=== PATIENT | male | born 1950 | race Caucasian/White ===

== ENCOUNTER 2017-04-12 18:59 | Inpatient (IN) | payer OTHER ==
[~2017-04-12] VITALS: Ht 157.5 cm; Wt 78.5 kg
[2017-04-12 21:50] VITALS: BP 154/83; PULSE 74
[2017-04-12 22:28] VITALS: Ht 157.5 cm; Wt 78.5 kg
[2017-04-12] MEDS ORDERED: ACETAMINOPHEN 325 MG TAB PO PRN (22:30)
[2017-04-12] MEDS ORDERED: DEXTROSE 50% 50 ML SYRINGE IV PRN (22:30)
[2017-04-12] MEDS ORDERED: GLUCOSE GEL 15 GRAM TUBE PO PRN (22:30)
[2017-04-12] MEDS ORDERED: NITROGLYCERIN (SL) 0.4 MG TAB SL PRN (22:30)
[2017-04-12] MEDS ORDERED: INSULIN GLARGINE [LANtus] 3 ML PEN SC SCH (23:30)
[2017-04-13] MEDS: CEFTRIAXONE 1 GM/50 ML (PMX) 50 ML IVPB SCH
[2017-04-13] MEDS: INSULIN GLARGINE [LANtus] 3 ML PEN SC SCH ×3 (01:21→20:52)
[2017-04-13] MEDS: Insulin NOVOLOG SS MODERATE Algorithm (SS with meals and bedtime) SC SCH ×5 (01:22→20:46)
[2017-04-13 01:49] LABS: ADD UMIC YES; UR ASCORBIC ACID NEGATIVE (NEGATIVE); UR BILIRUBIN (Dip) NEGATIVE (NEGATIVE); UR BLOOD (Dip) 1+ mg/dL (NEGATIVE); UR CLARITY CLEAR (CLEAR); UR COLOR YELLOW (YELLOW); UR GLUCOSE (Dip) 3+ mg/dL (NEGATIVE); UR KETONES (Dip) NEGATIVE (NEGATIVE); UR LEUKOCYTE ESTERASE (Dip) NEGATIVE Leu/ul (NEGATIVE); UR NITRITE (Dip) NEGATIVE (NEGATIVE); UR RBC 1 /HPF (0-5); UR SPECIFIC GRAVITY (Dip) 1.031 (1.003-1.030); UR TOTAL PROTEIN (Dip) NEGATIVE (NEGATIVE); UR UROBILINOGEN (Dip) NEGATIVE (NEGATIVE)
[2017-04-13] MEDS: ACCUCHECK AT 2AM (Patients on SS coverage) XX SCH (02:55)
[2017-04-13] MEDS: PANTOPRAZOLE (EC) 40 MG TAB PO SCH (06:10)
[2017-04-13 07:01] LABS: ADD SCAN DIFF NO
[2017-04-13 07:04] LABS: BASOPHILS % 0.4 % (0.0-2.0); EOSINOPHILS # 0.2 10^3/ul (0.0-0.5); EOSINOPHILS % 2.7 % (0.0-7.0); HEMATOCRIT 42.8 % (42.0-52.0); HEMOGLOBIN 14.3 g/dl (14.0-18.0); LYMPHOCYTES # 1.7 10^3/ul (0.8-2.9); LYMPHOCYTES % 22.6 % (15.0-51.0); MEAN CORPUSCULAR HEMOGLOBIN 30.8 pg (29.0-33.0); MEAN CORPUSCULAR HGB CONC 33.4 g/dl (32.0-37.0); MEAN CORPUSCULAR VOLUME 92.2 fl (82.0-101.0); MEAN PLATELET VOLUME 12.9 fl (7.4-10.4); MONOCYTE # 0.6 10^3/ul (0.3-0.9); MONOCYTES % 8.5 % (0.0-11.0); NEUTROPHIL # 4.9 10^3/ul (1.6-7.5); NEUTROPHILS % 65.4 % (39.0-77.0); PLATELET COUNT 150 10^3/UL (140-415); RED BLOOD COUNT 4.64 10^6/ul (4.70-6.10); RED CELL DISTRIBUTION WIDTH 12.8 % (11.5-14.5); WHITE BLOOD COUNT 7.5 10^3/ul (4.8-10.8)
[2017-04-13] MEDS ORDERED: AL HYDROX/MG HYDROX/SIMETH 30 ML CUP PO ONE (07:05)
[2017-04-13 07:30] VITALS: BP 190/88; RESP 18
[2017-04-13 07:35] LABS: ALBUMIN 3.9 g/dl (3.3-4.9); ALBUMIN/GLOBULIN RATIO 1.62; BILIRUBIN,INDIRECT 0.9 mg/dl (0-1.1); BILIRUBIN,TOTAL 0.9 mg/dl (0.2-1.3); CALCIUM 8.9 mg/dl (8.4-10.2); CREATININE 0.5 mg/dl (0.61-1.24); TOTAL PROTEIN 6.3 g/dl (6.1-8.1)
[2017-04-13] MEDS ORDERED: BISACODYL 10 MG SUPP PR PRN (08:30)
[2017-04-13] MEDS ORDERED: MAGNESIUM HYDROXIDE 30ML CUP PO PRN (08:30)
[2017-04-13] MEDS ORDERED: LACTULOSE 30ML CUP PO PRN (08:30)
[2017-04-13] MEDS ORDERED: LISINOPRIL 20 MG TAB PO SCH (09:00)
[2017-04-13] MEDS: AL HYDROX/MG HYDROX/SIMETH 30 ML CUP PO SCH ×4 (09:08→20:46)
[2017-04-13] MEDS: AMLODIPINE 10 MG TAB PO SCH (09:09)
[2017-04-13] MEDS: ASPIRIN (EC) 325 MG TAB PO SCH (09:09)
[2017-04-13] MEDS: DOCUSATE SODIUM 100 MG CAP PO SCH ×2 (09:09→20:46)
[2017-04-13] MEDS: ENOXAPARIN 40 MG/0.4 ML SYG SC SCH (09:11)
[2017-04-13] MEDS: INSULIN ASPART [NOVOLOG] 3 ML PEN SC SCH ×3 (09:12→17:20)
--- NOTE | 2017-04-13 10:28 | CONS ---
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 uncontrolled diabetes mellitus type 2 2. hypertension 3. hyperlipidemia 4. history of CVA with good functional recovery 5. Impairments in self-care, mobility and cognition. PLAN: The patient has been admitted for comprehensive interdisciplinary acute rehab and is anticipated to tolerate 3 hours of daily therapy in divided doses for at least 5/7 days a week. The treatment plan will include: 1. Physical therapy to focus on bed mobility, transfers, and household ambulation with the goal of having the patient reach a standby assist at the wheelchair level, minimal assist for ambulation. 2. Occupational therapy to focus on hygiene, grooming, dressing, bathing, and toileting activities with the goal of having the patient reach a standby assist level at the wheelchair level. 3. Speech therapy for full cognitive assessment and retraining in addition to dysphagia management with the goal of having the patient return to baseline cognition and meet nutritional needs by mouth. 4. Rehabilitation nursing for carryover of therapeutic interventions, the goal of continent of bowel and bladder, the goal of pain adequately managed on oral medications. ESTIMATED LENGTH OF STAY: 14 days. DISPOSITION GOAL: Home. Rehabilitation Barrier: Left-sided weakness Intervention for barrier: Interdisciplinary rehabilitative treatment program I acknowledge that I performed a full physical examination on this patient within 24 hours of admission to the rehabilitation unit and believe the patient is a good candidate for comprehensive interdisciplinary rehab care and is anticipated to make reasonable goals in a reasonable period of time as outlined above. Consultation Date/Type/Reason Admit Date/Time Apr 12, 2017 at 21:24 Type of Consultation: Rehabilitation Reason for Consultation Rehabilitation post admission physician evaluation Hx of Present Illness Patient is a pleasant 66-year-old right-handed gentleman with a history of diabetes mellitus type 2, hypertension, and hyperlipidemia who presented to [facility] with 2 days of left-sided weakness. Patient reports a ground-level fall due to his weakness. Patient was noted to have right basal ganglia infarct. Patient's hospital course was also notable for uncontrolled diabetes with blood sugar greater than 500. Patient has been cleared to transfer to the rehabilitation unit for comprehensive interdisciplinary rehab care. Constitutional: No chills, No diaphoresis, No disoriented, No febrile, No improved, No no complaints, No other, No poor po, No requiring IVF, No requiring O2 Eyes: No discharge, No no complaints, No other, No pain, No redness, No visual change ENT: No bleeding, No congestion, No discharge, No dysphagia, No no complaints, No other, No pain, No sore throat Respiratory: No cough, No no complaints, No other, No pain, No pleuritic pain, No shortness of breath, No sputum, No wheezing Cardiovascular: No chest pain, No edema, No lightheadedness, No no complaints, No orthopenea, No other, No palpitations, No paroxysmal nocturnal dyspnea Gastrointestinal: No blood, No constipation, No decreased appetite, No diarrhea , No flatus, No nausea, No no complaints, No other, No pain, No passing stool, No vomiting Genitourinary: No bleeding, No discharge, No dysuria, No flank pain, No hematuria, No no complaints, No other Past Medical History FUNCTIONAL HISTORY: Prior to recent events, he was independent in self-care tasks and mobility. Currently, patient requires maximal assist for self-care and mobility tasks. I have reviewed the preadmission screen and the patient's current functional status is consistent with the preadmission screen. SOCIAL HISTORY: The patient lives at home and hopes to return there upon discharge. Past medical history 1. diabetes mellitus type 2 2. Hypertension 3. Hyperlipidemia 4. History of CVA with good functional recovery 5. Alcoholism Social History Smoking Status: Never smoker Exam/Review of Systems Vital Signs Vitals Vital Signs Date Time Temp Pulse Resp B/P Pulse Ox O2 Delivery O2 Flow Rate FiO2 04/12/17 21:50 98.7 74 154/83 Room Air Intake and Output 04/12/17 04/12/17 04/13/17 15:00 23:00 07:00 Intake Total 290 ml Output Total 250 ml Balance 40 ml Exam Extraocular motion intact oropharynx clear Neck supple Lungs clear anteriorly Cardiac S1-S2 Abdomen soft nontender positive bowel sounds Patient is awake and alert and oriented to person and hospital He does follow simple one-step commands He demonstrate good strength in the right upper and lower extremity; 2+ strength in the left upper and lower extremity He has impaired dynamic balance Results Result Diagram: 04/13/1727 04/13/17626 Results 24 hrs Laboratory Tests Test 04/12/17 22:32 04/13/17 00:28 04/13/17 01:01 04/13/17 02:51 Bedside Glucose 293 H 348 H 192 Urine Color YELLOW Urine Clarity CLEAR Urine pH 6.0 Urine Specific [place] 1.031 H Urine Ketones NEGATIVE Urine Nitrite NEGATIVE Urine Bilirubin NEGATIVE Urine Urobilinogen NEGATIVE Urine Leukocyte Esterase NEGATIVE Urine Microscopic RBC 1 Urine Microscopic WBC 0 Urine Hemoglobin 1+ H Urine Glucose 3+ H Urine Total Protein NEGATIVE Test 04/13/17 06:27 04/13/17 08:09 White Blood Count 7.5 Red Blood Count 4.64 L Hemoglobin 14.3 Hematocrit 42.8 Mean Corpuscular Volume 92.2 Mean Corpuscular Hemoglobin 30.8 Mean Corpuscular Hemoglobin Concent 33.4 Red Cell Distribution Width 12.8 Platelet Count 150 Mean Platelet Volume 12.9 H Neutrophils % 65.4 Lymphocytes % 22.6 Monocytes % 8.5 Eosinophils % 2.7 Basophils % 0.4 Nucleated Red Blood Cells % 0.0 Neutrophils # 4.9 Lymphocytes # 1.7 Monocytes # 0.6 Eosinophils # 0.2 Basophils # 0.0 Nucleated Red Blood Cells # 0.0 Sodium Level 132 L Potassium Level 3.0 L Chloride Level 100 Carbon Dioxide Level 28 Anion Gap 7 L Blood Urea Nitrogen 12 Creatinine 0.50 L Glucose Level 168 Calcium Level 8.9 Total Bilirubin 0.9 Direct Bilirubin 0.00 Indirect Bilirubin 0.9 Aspartate Amino Transf (AST/SGOT) 59 H Alanine Aminotransferase (ALT/SGPT) 83 H Alkaline Phosphatase 70 Total Protein 6.3 Albumin 3.9 Globulin 2.40 Albumin/Globulin Ratio 1.62 Bedside Glucose 168 Medications Medications Current Medications Acetaminophen 650 mg 650 mg Q4H PRN PO PAIN AND OR ELEVATED TEMP; Start at 22:30 Ceftriaxone Sodium (Rocephin) 50 ml @ 100 mls/hr Q24H IVPB Last administered on 04/13/17t 00:00; Admin Dose 100 MLS/HR; Start 04/13/17 at 00:00 Glucose (Glutose) 31 gm PRN PRN PO DECREASED GLUCOSE; Start 04/12/17 at 22:30 Dextrose (D50w Syringe) 50 ml PRN PRN IV DECREASED GLUCOSE; Start 04/12/17 at 22:30 Nitroglycerin (Nitroglycerin (Sl Tab) 0.4 Mg) 1 tab Q5M PRN SL ANGINA; Start at 22:30 Pantoprazole (Protonix Tab) 40 mg DAILY@06 PO Last administered on 04/13/17 06 :10; Admin Dose 40 MG; Start 04/13/17 at 06:00 Amlodipine Besylate (Norvasc) 10 mg DAILY PO Last administered on 04/13/17 09: 09; Admin Dose 10 MG; Start 04/13/17 at 09:00 Aspirin (Ecotrin) 325 mg DAILY PO Last administered on 04/13/17 09:09; Admin Dose 325 MG; Start 04/13/17 at 09:00 Atorvastatin Calcium (Lipitor) 80 mg HS PO ; Start 04/13/17 at 21:00 Enoxaparin Sodium (Lovenox) 40 mg DAILY SC Last administered on 04/13/17 09:11 ; Admin Dose 40 MG; Start 04/13/17 at 09:00 Lisinopril (Zestril) 40 mg DAILY PO Last administered on 04/13/17 09:13; Admin Dose 40 MG; Start 04/13/17 at 09:00 Insulin Glargine (Lantus) 25 unit BID SC Last administered on 04/13/17 09:10; Admin Dose 25 UNIT; Start 04/13/17 at 00:00 Diagnostic Test (Pha) (Accu-Chek) 1 ea 02 XX Last administered on 04/13/17 02: 55; Admin Dose 1 EA; Start 04/13/17 at 02:00 Docusate Sodium (Colace) 100 mg BID PO Last administered on 04/13/17 09:09; Admin Dose 100 MG; Start 04/13/17 at 09:00 Senna (Senokot) 1 tab HS PO ; Start 04/13/17 at 21:00 Bisacodyl (Dulcolax Supp) 10 mg Q24H PRN [place] CONSTIPATION; Start 04/13/17 at 08: 30 Magnesium Hydroxide (Milk Of Mag) 30 ml Q12H PRN PO CONSTIPATION; Start at 08:30 Lactulose (Enulose) 20 gm Q24H PRN PO CONSTIPATION Last administered on 09:08; Admin Dose 20 GM; Start 04/13/17 at 08:30 EVANGELINA RAMIREZ MD Apr 13, 2017 10:28
[2017-04-13] MEDS ORDERED: POTASSIUM CHLORIDE (SR) 20 MEQ TAB PO STA (16:12)
[2017-04-13] MEDS ORDERED: DEXTROSE 50% 50 ML SYRINGE IV PRN ×2 (18:00)
[2017-04-13] MEDS ORDERED: GLUCOSE GEL 15 GRAM TUBE PO PRN ×2 (18:00)
[2017-04-13] MEDS ORDERED: GLUCAGON 1 MG INJ IM PRN (18:00)
[2017-04-13] MEDS ORDERED: GLUCOSE GEL 15 GRAM TUBE BUCCAL PRN (18:00)
[2017-04-13 19:42] VITALS: BP 170/80; RESP 18
[2017-04-13] MEDS: SENNA TAB PO SCH (20:46)
[2017-04-13] MEDS: ATORVASTATIN 80 MG TAB PO SCH (20:46)
[2017-04-14] MEDS: CEFTRIAXONE 1 GM/50 ML (PMX) 50 ML IVPB SCH
[2017-04-14] MEDS: ACCUCHECK AT 2AM (Patients on SS coverage) XX SCH (02:00)
[2017-04-14 06:36] LABS: ADD SCAN DIFF NO
[2017-04-14] MEDS: PANTOPRAZOLE (EC) 40 MG TAB PO SCH (06:38)
[2017-04-14 06:54] LABS: BASOPHILS % 0.5 % (0.0-2.0); EOSINOPHILS # 0.2 10^3/ul (0.0-0.5); EOSINOPHILS % 2.7 % (0.0-7.0); HEMATOCRIT 43.2 % (42.0-52.0); HEMOGLOBIN 14.3 g/dl (14.0-18.0); LYMPHOCYTES # 1.9 10^3/ul (0.8-2.9); LYMPHOCYTES % 21.7 % (15.0-51.0); MEAN CORPUSCULAR HGB CONC 33.1 g/dl (32.0-37.0); MEAN CORPUSCULAR VOLUME 93.7 fl (82.0-101.0); MEAN PLATELET VOLUME 12.8 fl (7.4-10.4); MONOCYTE # 0.7 10^3/ul (0.3-0.9); MONOCYTES % 8.2 % (0.0-11.0); NEUTROPHIL # 5.8 10^3/ul (1.6-7.5); NEUTROPHILS % 66.7 % (39.0-77.0); PLATELET COUNT 157 10^3/UL (140-415); RED BLOOD COUNT 4.61 10^6/ul (4.70-6.10); RED CELL DISTRIBUTION WIDTH 12.8 % (11.5-14.5); WHITE BLOOD COUNT 8.7 10^3/ul (4.8-10.8)
[2017-04-14 07:12] LABS: ALBUMIN 3.9 g/dl (3.3-4.9); ALBUMIN/GLOBULIN RATIO 1.56; CALCIUM 9.1 mg/dl (8.4-10.2); CREATININE 0.63 mg/dl (0.61-1.24); POTASSIUM 3.6 mmol/L (3.5-5.1); TOTAL PROTEIN 6.4 g/dl (6.1-8.1)
[2017-04-14 07:51] VITALS: BP 145/81; RESP 17
[2017-04-14] MEDS: AL HYDROX/MG HYDROX/SIMETH 30 ML CUP PO SCH ×4 (07:51→20:57)
[2017-04-14] MEDS: INSULIN ASPART [NOVOLOG] 3 ML PEN SC SCH ×3 (07:53→17:04)
[2017-04-14] MEDS: Insulin NOVOLOG SS MODERATE Algorithm (SS with meals and bedtime) SC SCH ×4 (07:54→20:59)
[2017-04-14] MEDS ORDERED: LOSARTAN 25 MG TAB PO SCH (09:00)
[2017-04-14] MEDS: ASPIRIN (EC) 325 MG TAB PO SCH (09:09)
[2017-04-14] MEDS: DOCUSATE SODIUM 100 MG CAP PO SCH ×2 (09:09→20:57)
[2017-04-14] MEDS: AMLODIPINE 10 MG TAB PO SCH (09:09)
[2017-04-14] MEDS: ENOXAPARIN 40 MG/0.4 ML SYG SC SCH (09:09)
[2017-04-14] MEDS: INSULIN GLARGINE [LANtus] 3 ML PEN SC SCH ×2 (09:10→21:19)
--- NOTE | 2017-04-14 11:53 | HP ---
Date/Time of Note Date/Time of Note DATE: 04/14/17 TIME: 11:49 Assessment/Plan VTE Prophylaxis VTE Prophylaxis Intervention: SCD's Lines/Catheters [facility] Saline Lock Assessment/Plan Chief Complaint/Hosp Course 1. uncontrolled diabetes mellitus type 2 2. hypertension, uncontrolled 3. hyperlipidemia 4. history of CVA with left sided hemiparesis 5.Obesity Problems: Assessment/Plan 1. Optimization kidney function 2. better HTN control HPI/ROS Admit Date/Time Admit Date/Time Apr 12, 2017 at 21:24 ROS Constitutional: fatigue Eyes: No discharge, No no complaints, No other, No pain, No redness, No visual change ENT: no complaints, No bleeding, No congestion, No discharge, No dysphagia, No other, No pain, No sore throat Respiratory: No cough, No no complaints, No other, No pain, No pleuritic pain, No shortness of breath, No sputum, No wheezing Cardiovascular: no complaints, No chest pain, No edema, No lightheadedness, No orthopenea, No other, No palpitations, No paroxysmal nocturnal dyspnea Gastrointestinal: no complaints, No blood, No constipation, No decreased appetite, No diarrhea, No flatus, No nausea, No other, No pain, No passing stool, No vomiting Genitourinary: no complaints, No bleeding, No discharge, No dysuria, No flank pain, No hematuria, No other Musculoskeletal: restricted range of motion (left side of the body) Endocrine: polyuria PMH/Family/Social Past Medical History Medical History: diabetes, GERD, high cholesterol, hypertension Past Surgical History Past Surgical Hx: no surgical history Family History Significant Family History: no pertinent family hx Social History Alcohol Use: none Smoking Status: Never smoker Drug Use: none Exam/Review of Systems Vital Signs Vitals Vital Signs Date Time Temp Pulse Resp B/P Pulse Ox O2 Delivery O2 Flow Rate FiO2 04/14/17 07:51 98.1 75 17 145/81 92 04/12/17 21:50 Room Air Intake and Output 04/13/17 04/13/17 04/14/17 15:00 23:00 07:00 Intake Total 680 ml 700 ml Output Total 500 ml 140 ml Balance -500 ml 540 ml 700 ml Exam Constitutional: alert, oriented Psych: no complaints Head: normocephalic Neck: supple Respiratory: clear to auscultation Cardiovascular: regular rate and rhythm Gastrointestinal: soft Genitourinary - Male: nl scrotum Musculoskeletal: muscle weakness (left side) Neurological: focal weakness, nl speech Skin: nl turgor Labs Result Diagram: 04/14/1761704/14/17617 Medications Medications Current Medications Acetaminophen 650 mg 650 mg Q4H PRN PO PAIN AND OR ELEVATED TEMP; Start at 22:30 Ceftriaxone Sodium (Rocephin) 50 ml @ 100 mls/hr Q24H IVPB Last administered on 04/14/17 00:00; Admin Dose 100 MLS/HR; Start 04/13/17 at 00:00; Stop at 00:00 Glucose (Glutose) 31 gm PRN PRN PO DECREASED GLUCOSE; Start 04/12/17 at 22:30 Dextrose (D50w Syringe) 50 ml PRN PRN IV DECREASED GLUCOSE; Start 04/12/17 at 22:30 Nitroglycerin (Nitroglycerin (Sl Tab) 0.4 Mg) 1 tab Q5M PRN SL ANGINA; Start at 22:30 Pantoprazole (Protonix Tab) 40 mg DAILY@06 PO Last administered on 04/14/17 06 :38; Admin Dose 40 MG; Start 04/13/17 at 06:00 Amlodipine Besylate (Norvasc) 10 mg DAILY PO Last administered on 04/14/17 09: 09; Admin Dose 10 MG; Start 04/13/17 at 09:00 Aspirin (Ecotrin) 325 mg DAILY PO Last administered on 04/14/17 09:09; Admin Dose 325 MG; Start 04/13/17 at 09:00 Atorvastatin Calcium (Lipitor) 80 mg HS PO Last administered on 04/13/17 20:46 ; Admin Dose 80 MG; Start 04/13/17 at 21:00 Enoxaparin Sodium (Lovenox) 40 mg DAILY SC Last administered on 04/14/17 09:09 ; Admin Dose 40 MG; Start 04/13/17 at 09:00 Insulin Glargine (Lantus) 25 unit BID SC Last administered on 04/14/17 09:10; Admin Dose 25 UNIT; Start 04/13/17 at 00:00 Diagnostic Test (Pha) (Accu-Chek) 1 XX Last administered on 04/13/17 02: 55; Admin Dose 1 EA; Start 04/13/17 at 02:00 Docusate Sodium (Colace) 100 mg BID PO Last administered on 04/14/17 09:09; Admin Dose 100 MG; Start 04/13/17 at 09:00 Senna (Senokot) 1 tab HS PO Last administered on 04/13/17 20:46; Admin Dose 1 TAB; Start 04/13/17 at 21:00 Bisacodyl (Dulcolax Supp) 10 mg Q24H PRN [place] CONSTIPATION; Start 04/13/17 at 08: 30 Magnesium Hydroxide (Milk Of Mag) 30 ml Q12H PRN PO CONSTIPATION; Start at 08:30 Lactulose (Enulose) 20 gm Q24H PRN PO CONSTIPATION Last administered on 09:08; Admin Dose 20 GM; Start 04/13/17 at 08:30 Losartan Potassium (Cozaar) 25 mg DAILY PO Last administered on 04/14/17 09:09 ; Admin Dose 25 MG; Start 04/14/17 at 09:00 Miscellaneous Information 1 ea NOTE XX ; Start 04/13/17 at 18:00 Glucose (Glutose) 15 gm Q15M PRN PO DECREASED GLUCOSE; Start 04/13/17 at 18:00 Glucose (Glutose) 22.5 gm Q15M PRN PO DECREASED GLUCOSE; Start 04/13/17 at 18: 00 Dextrose (D50w Syringe) 25 ml Q15M PRN IV DECREASED GLUCOSE; Start 04/13/17 at 18:00 Dextrose (D50w Syringe) 50 ml Q15M PRN IV DECREASED GLUCOSE; Start 04/13/17 at 18:00 Glucagon (Glucagen) 1 mg Q15M PRN IM DECREASED GLUCOSE; Start 04/13/17 at 18:00 Glucose (Glutose) 15 gm Q15M PRN BUCCAL DECREASED GLUCOSE; Start 04/13/17 at 18 :00 EMILY BRADFORD Apr 14, 2017 11:52
[2017-04-14] MEDS: LINAGLIPTIN 5 MG TABLET PO SCH (12:23)
--- NOTE | 2017-04-14 13:23 | CONS ---
Date/Time of Note Date/Time of Note DATE: 04/14/17 TIME: 13:20 Consult Date/Type/Reason Admit Date/Time Apr 12, 2017 at 21:24 Initial Consult Date Type of Consultation: Rehabilitation Objective Lungs clear anterior Abdomen soft Moderate assist Vital Signs Date Time Temp Pulse Resp B/P Pulse Ox O2 Delivery O2 Flow Rate FiO2 04/14/17 07:51 98.1 75 17 145/81 92 04/12/17 21:50 Room Air Intake and Output 04/13/17 04/13/17 04/14/17 15:00 23:00 07:00 Intake Total 680 ml 700 ml Output Total 500 ml 140 ml Balance -500 ml 540 ml 700 ml Results/Medications Result Diagram: 04/14/17 0618 04/14/17 0618 Results 24 hrs Laboratory Tests Test 04/13/17 17:16 04/13/17 20:39 04/14/17 06:18 04/14/17 07:37 Bedside Glucose 182 159 175 White Blood Count 8.7 Red Blood Count 4.61 L Hemoglobin 14.3 Hematocrit 43.2 Mean Corpuscular Volume 93.7 Mean Corpuscular Hemoglobin 31.0 Mean Corpuscular Hemoglobin Concent 33.1 Red Cell Distribution Width 12.8 Platelet Count 157 Mean Platelet Volume 12.8 H Neutrophils % 66.7 Lymphocytes % 21.7 Monocytes % 8.2 Eosinophils % 2.7 Basophils % 0.5 Nucleated Red Blood Cells % 0.0 Neutrophils # 5.8 Lymphocytes # 1.9 Monocytes # 0.7 Eosinophils # 0.2 Basophils # 0.0 Nucleated Red Blood Cells # 0.0 Sodium Level 131 L Potassium Level 3.6 Chloride Level 99 Carbon Dioxide Level 28 Anion Gap 8 Blood Urea Nitrogen 16 Creatinine 0.63 Glucose Level 156 Calcium Level 9.1 Total Bilirubin 1.0 Direct Bilirubin 0.00 Indirect Bilirubin 1.0 Aspartate Amino Transf (AST/SGOT) 73 H Alanine Aminotransferase (ALT/SGPT) 97 H Alkaline Phosphatase 69 Total Protein 6.4 Albumin 3.9 Globulin 2.50 Albumin/Globulin Ratio 1.56 Test 04/14/17 12:05 Bedside Glucose 219 Medications Current Medications Acetaminophen 650 mg 650 mg Q4H PRN PO PAIN AND OR ELEVATED TEMP; Start at 22:30 Ceftriaxone Sodium (Rocephin) 50 ml @ 100 mls/hr Q24H IVPB Last administered on 04/14/17 00:00; Admin Dose 100 MLS/HR; Start 04/13/17 at 00:00; Stop at 00:00 Glucose (Glutose) 31 gm PRN PRN PO DECREASED GLUCOSE; Start 04/12/17 at 22:30 Dextrose (D50w Syringe) 50 ml PRN PRN IV DECREASED GLUCOSE; Start 04/12/17 at 22:30 Nitroglycerin (Nitroglycerin (Sl Tab) 0.4 Mg) 1 tab Q5M PRN SL ANGINA; Start at 22:30 Pantoprazole (Protonix Tab) 40 mg DAILY@06 PO Last administered on 04/14/17 06 :38; Admin Dose 40 MG; Start 04/13/17 at 06:00 Amlodipine Besylate (Norvasc) 10 mg DAILY PO Last administered on 04/14/17 09: 09; Admin Dose 10 MG; Start 04/13/17 at 09:00 Aspirin (Ecotrin) 325 mg DAILY PO Last administered on 04/14/17 09:09; Admin Dose 325 MG; Start 04/13/17 at 09:00 Atorvastatin Calcium (Lipitor) 80 mg HS PO Last administered on 04/13/17 20:46 ; Admin Dose 80 MG; Start 04/13/17 at 21:00 Enoxaparin Sodium (Lovenox) 40 mg DAILY SC Last administered on 04/14/17 09:09 ; Admin Dose 40 MG; Start 04/13/17 at 09:00 Diagnostic Test (Pha) (Accu-Chek) 1 ea 02 XX Last administered on 04/13/17 02: 55; Admin Dose 1 EA; Start 04/13/17 at 02:00 Docusate Sodium (Colace) 100 mg BID PO Last administered on 04/14/17 09:09; Admin Dose 100 MG; Start 04/13/17 at 09:00 Senna (Senokot) 1 tab HS PO Last administered on 04/13/17 20:46; Admin Dose 1 TAB; Start 04/13/17 at 21:00 Bisacodyl (Dulcolax Supp) 10 mg Q24H PRN [place] CONSTIPATION; Start 04/13/17 at 08: 30 Magnesium Hydroxide (Milk Of Mag) 30 ml Q12H PRN PO CONSTIPATION; Start at 08:30 Lactulose (Enulose) 20 gm Q24H PRN PO CONSTIPATION Last administered on 09:08; Admin Dose 20 GM; Start 04/13/17 at 08:30 Miscellaneous Information 1 ea NOTE XX ; Start 04/13/17 at 18:00 Glucose (Glutose) 15 gm Q15M PRN PO DECREASED GLUCOSE; Start 04/13/17 at 18:00 Glucose (Glutose) 22.5 gm Q15M PRN PO DECREASED GLUCOSE; Start 04/13/17 at 18: 00 Dextrose (D50w Syringe) 25 ml Q15M PRN IV DECREASED GLUCOSE; Start 04/13/17 at 18:00 Dextrose (D50w Syringe) 50 ml Q15M PRN IV DECREASED GLUCOSE; Start 04/13/17 at 18:00 Glucagon (Glucagen) 1 mg Q15M PRN IM DECREASED GLUCOSE; Start 04/13/17 at 18:00 Glucose (Glutose) 15 gm Q15M PRN BUCCAL DECREASED GLUCOSE; Start 04/13/17 at 18 :00 Insulin Glargine (Lantus) 30 unit QHS SC ; Start 04/14/17 at 21:00 Losartan Potassium (Cozaar) 25 mg BID PO ; Start 04/14/17 at 21:00 Linagliptin (Tradjenta) 5 mg DAILY PO Last administered on 04/14/17 12:23; Admin Dose 5 MG; Start 04/14/17 at 12:00 Assessment/Plan Chief Complaint/Hosp Course Patient is a pleasant 66-year-old right-handed gentleman with a history of diabetes mellitus type 2, hypertension, and hyperlipidemia who presented to [facility] with 2 days of left-sided weakness. Patient reports a ground-level fall due to his weakness. Patient was noted to have right basal ganglia infarct. Patient's hospital course was also notable for uncontrolled diabetes with blood sugar greater than 500. Patient has been cleared to transfer to the rehabilitation unit for comprehensive interdisciplinary rehab care. Problems: Additional Assessment/Plan Rehabilitation- right basal ganglia infarct CVA with left-sided weakness Tolerating rehabilitation program uncontrolled diabetes mellitus type 2-patient with newly diagnosed diabetes. hematology nurse educator working with patient and staff. hypertension hyperlipidemia history of CVA with good functional recovery EVANGELINA RAMIREZ MD Apr 14, 2017 13:23
[2017-04-14 20:14] VITALS: BP 131/65; RESP 18
[2017-04-14] MEDS: ATORVASTATIN 80 MG TAB PO SCH (20:57)
[2017-04-14] MEDS: SENNA TAB PO SCH (20:57)
[2017-04-14] MEDS: LOSARTAN 25 MG TAB PO SCH (20:59)
[2017-04-15] MEDS: CEFTRIAXONE 1 GM/50 ML (PMX) 50 ML IVPB SCH (00:04)
[2017-04-15] MEDS: ACCUCHECK AT 2AM (Patients on SS coverage) XX SCH (02:00)
[2017-04-15] MEDS: PANTOPRAZOLE (EC) 40 MG TAB PO SCH (06:53)
[2017-04-15 07:30] VITALS: BP 133/70; RESP 18
[2017-04-15 07:32] LABS: CALCIUM 9.2 mg/dl (8.4-10.2); CREATININE 0.58 mg/dl (0.61-1.24); POTASSIUM 3.6 mmol/L (3.5-5.1)
[2017-04-15] MEDS: Insulin NOVOLOG SS MODERATE Algorithm (SS with meals and bedtime) SC SCH ×4 (07:35→21:00)
[2017-04-15] MEDS: AL HYDROX/MG HYDROX/SIMETH 30 ML CUP PO SCH ×4 (07:50→21:35)
[2017-04-15] MEDS: INSULIN ASPART [NOVOLOG] 3 ML PEN SC SCH ×3 (07:50→17:29)
[2017-04-15] MEDS: DOCUSATE SODIUM 100 MG CAP PO SCH ×2 (08:35→21:35)
[2017-04-15] MEDS: AMLODIPINE 10 MG TAB PO SCH (08:36)
[2017-04-15] MEDS: ASPIRIN (EC) 325 MG TAB PO SCH (08:36)
[2017-04-15] MEDS: LOSARTAN 25 MG TAB PO SCH (08:36)
[2017-04-15] MEDS: LINAGLIPTIN 5 MG TABLET PO SCH (08:36)
[2017-04-15] MEDS: ENOXAPARIN 40 MG/0.4 ML SYG SC SCH (08:37)
--- NOTE | 2017-04-15 11:58 | PN ---
Date/Time of Note Date/Time of Note DATE: 04/15/17 TIME: 11:53 Assessment/Plan VTE Prophylaxis VTE Prophylaxis Intervention: LMWH Lines/Catheters IV Catheter Type (from Nrs): Saline Lock Assessment/Plan Assessment/Plan 1. 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 Continue PT/OT/ST. Moderate assistance for transfers. Secondary stroke prevention per neurology. 2. Diabetes mellitus type 2. Internal medicine adjusting insulin regimen. Monitor blood sugars. 3. Hypertension. BP control improving. Continue medical management per internal medicine. 4.Hyperlipidemia. Continue statin. Subjective 24 Hr Interval Summary Free Text/Dictation Rehab progress note Subjective: No acute complaints. ROS: Denies chest pain, no shortness of breath, no abdominal pain, no nausea or vomiting, no chills. Exam/Review of Systems Vital Signs Vitals Vital Signs Date Time Temp Pulse Resp B/P Pulse Ox O2 Delivery O2 Flow Rate FiO2 04/15/17 07:30 98.4 69 18 133/70 94 04/12/17 21:50 Room Air Intake and Output 04/14/17 04/14/17 04/15/17 15:00 23:00 07:00 Intake Total 820 ml 720 ml 450 ml Output Total 140 ml 200 ml 400 ml Balance 680 ml 520 ml 50 ml Exam General: Awake, alert, no acute distress CV: Regular rate, s1s2 Lungs: Clear to anterior auscultation, no wheezing Abdomen soft, nontender Extremities without cyanosis, no distal edema Neuro: Follows simple commands. Left sided hemiparesis. Results Result Diagram: 04/14/17 0618 04/15/17 0630 Results 24 hrs Laboratory Tests Test 04/14/17 12:05 04/14/17 17:03 04/14/17 20:56 04/15/17 06:30 Bedside Glucose 219 144 97 Sodium Level 141 Potassium Level 3.6 Chloride Level 99 Carbon Dioxide Level 28 Anion Gap 18 H Blood Urea Nitrogen 15 Creatinine 0.58 L Glucose Level 133 Calcium Level 9.2 Test 04/15/17 07:47 Bedside Glucose 110 Medications Medications Current Medications Acetaminophen (Tylenol Tab) 650 mg Q4H PRN PO PAIN AND OR ELEVATED TEMP; Start 04/12/17 at 22:30 Glucose (Glutose) 31 gm PRN PRN PO DECREASED GLUCOSE; Start 04/12/17 at 22:30 Dextrose (D50w Syringe) 50 ml PRN PRN IV DECREASED GLUCOSE; Start 04/12/17 at 22:30 Nitroglycerin (Nitroglycerin (Sl Tab) 0.4 Mg) 1 tab Q5M PRN SL ANGINA; Start at 22:30 Pantoprazole (Protonix Tab) 40 mg DAILY@06 PO Last administered on 04/15/17 06 :53; Admin Dose 40 MG; Start 04/13/17 at 06:00 Amlodipine Besylate (Norvasc) 10 mg DAILY PO Last administered on 04/15/17 08: 36; Admin Dose 10 MG; Start 04/13/17 at 09:00 Aspirin (Ecotrin) 325 mg DAILY PO Last administered on 04/15/17 08:36; Admin Dose 325 MG; Start 04/13/17 at 09:00 Atorvastatin Calcium (Lipitor) 80 mg HS PO Last administered on 04/14/17 20:57 ; Admin Dose 80 MG; Start 04/13/17 at 21:00 Enoxaparin Sodium (Lovenox) 40 mg DAILY SC Last administered on 04/15/17 08:37 ; Admin Dose 40 MG; Start 04/13/17 at 09:00 Diagnostic Test (Pha) (Accu-Chek) 1 ea 02 XX Last administered on 04/13/17 02: 55; Admin Dose 1 EA; Start 04/13/17 at 02:00 Docusate Sodium (Colace) 100 mg BID PO Last administered on 04/15/17 08:35; Admin Dose 100 MG; Start 04/13/17 at 09:00 Senna (Senokot) 1 tab HS PO Last administered on 04/14/17 20:57; Admin Dose 1 TAB; Start 04/13/17 at 21:00 Bisacodyl (Dulcolax Supp) 10 mg Q24H PRN [place] CONSTIPATION; Start 04/13/17 at 08: 30 Magnesium Hydroxide (Milk Of Mag) 30 ml Q12H PRN PO CONSTIPATION; Start at 08:30 Lactulose (Enulose) 20 gm Q24H PRN PO CONSTIPATION Last administered on 09:08; Admin Dose 20 GM; Start 04/13/17 at 08:30 Miscellaneous Information 1 ea NOTE XX ; Start 04/13/17 at 18:00 Glucose (Glutose) 15 gm Q15M PRN PO DECREASED GLUCOSE; Start 04/13/17 at 18:00 Glucose (Glutose) 22.5 gm Q15M PRN PO DECREASED GLUCOSE; Start 04/13/17 at 18: 00 Dextrose (D50w Syringe) 25 ml Q15M PRN IV DECREASED GLUCOSE; Start 04/13/17 at 18:00 Dextrose (D50w Syringe) 50 ml Q15M PRN IV DECREASED GLUCOSE; Start 04/13/17 at 18:00 Glucagon (Glucagen) 1 mg Q15M PRN IM DECREASED GLUCOSE; Start 04/13/17 at 18:00 Glucose (Glutose) 15 gm Q15M PRN BUCCAL DECREASED GLUCOSE; Start 04/13/17 at 18 :00 Insulin Glargine (Lantus) 30 unit QHS SC Last administered on 04/14/17 21:19; Admin Dose 30 UNIT; Start 04/14/17 at 21:00 Losartan Potassium (Cozaar) 25 mg BID PO Last administered on 04/15/17 08:36; Admin Dose 25 MG; Start 04/14/17 at 21:00 Linagliptin (Tradjenta) 5 mg DAILY PO Last administered on 04/15/17 08:36; Admin Dose 5 MG; Start 04/14/17 at 12:00 CHRIS DAN Apr 15, 2017 11:58
--- NOTE | 2017-04-15 13:57 | PN ---
Date/Time of Note Date/Time of Note DATE: 04/15/17 TIME: 13:56 Assessment/Plan VTE Prophylaxis VTE Prophylaxis Intervention: ambulation Lines/Catheters IV [facility] ([facility] Saline Lock Assessment/Plan Chief Complaint/Hosp Course 1. uncontrolled diabetes mellitus type 2 2. hypertension, uncontrolled 3. hyperlipidemia 4. history of CVA with left sided hemiparesis 5.Obesity Problems: Assessment/Plan 1. Better HTN control Subjective 24 Hr Interval Summary Constitutional: improved, no complaints Exam/Review of Systems Vital Signs Vitals Vital Signs Date Time Temp Pulse Resp B/P Pulse Ox O2 Delivery O2 Flow Rate FiO2 04/15/17 07:30 98.4 69 18 133/70 94 04/12/17 21:50 Room Air Intake and Output 04/14/17 04/14/17 04/15/17 15:00 23:00 07:00 Intake Total 820 ml 720 ml 450 ml Output Total 140 ml 200 ml 400 ml Balance 680 ml 520 ml 50 ml Exam Constitutional: alert, oriented Respiratory: clear to auscultation Cardiovascular: regular rate and rhythm Gastrointestinal: soft Musculoskeletal: muscle weakness (left side) Results Result Diagram: 04/14/17 0618 04/15/17 0630 Results 24 hrs Laboratory Tests Test 04/14/17 17:03 04/14/17 20:56 04/15/17 06:30 04/15/17 07:47 Bedside Glucose 144 97 110 Sodium Level 141 Potassium Level 3.6 Chloride Level 99 Carbon Dioxide Level 28 Anion Gap 18 H Blood Urea Nitrogen 15 Creatinine 0.58 L Glucose Level 133 Calcium Level 9.2 Test 04/15/17 12:19 Bedside Glucose 224 H Medications Medications Current Medications Acetaminophen (Tylenol Tab) 650 mg Q4H PRN PO PAIN AND OR ELEVATED TEMP; Start 04/12/17 at 22:30 Glucose (Glutose) 31 gm PRN PRN PO DECREASED GLUCOSE; Start 04/12/17 at 22:30 Dextrose (D50w Syringe) 50 ml PRN PRN IV DECREASED GLUCOSE; Start 04/12/17 at 22:30 Nitroglycerin (Nitroglycerin (Sl Tab) 0.4 Mg) 1 tab Q5M PRN SL ANGINA; Start at 22:30 Pantoprazole (Protonix Tab) 40 mg DAILY@06 PO Last administered on 04/15/17t 06 :53; Admin Dose 40 MG; Start 04/13/17 at 06:00 Amlodipine Besylate (Norvasc) 10 mg DAILY PO Last administered on 04/15/17 08: 36; Admin Dose 10 MG; Start 04/13/17 at 09:00 Aspirin (Ecotrin) 325 mg DAILY PO Last administered on 04/15/17 08:36; Admin Dose 325 MG; Start 04/13/17 at 09:00 Atorvastatin Calcium (Lipitor) 80 mg HS PO Last administered on 04/14/17 20:57 ; Admin Dose 80 MG; Start 04/13/17 at 21:00 Enoxaparin Sodium (Lovenox) 40 mg DAILY SC Last administered on 04/15/17 08:37 ; Admin Dose 40 MG; Start 04/13/17 at 09:00 Diagnostic Test (Pha) (Accu-Chek) 1 ea 02 XX Last administered on 04/13/17 02: 55; Admin Dose 1 EA; Start 04/13/17 at 02:00 Docusate Sodium (Colace) 100 mg BID PO Last administered on 04/15/17 08:35; Admin Dose 100 MG; Start 04/13/17 at 09:00 Senna (Senokot) 1 tab HS PO Last administered on 04/14/17 20:57; Admin Dose 1 TAB; Start 04/13/17 at 21:00 Bisacodyl (Dulcolax Supp) 10 mg Q24H PRN [place] CONSTIPATION; Start 04/13/17 at 08: 30 Magnesium Hydroxide (Milk Of Mag) 30 ml Q12H PRN PO CONSTIPATION; Start at 08:30 Lactulose (Enulose) 20 gm Q24H PRN PO CONSTIPATION Last administered on 09:08; Admin Dose 20 GM; Start 04/13/17 at 08:30 Miscellaneous Information 1 ea NOTE XX ; Start 04/13/17 at 18:00 Glucose (Glutose) 15 gm Q15M PRN PO DECREASED GLUCOSE; Start 04/13/17 at 18:00 Glucose (Glutose) 22.5 gm Q15M PRN PO DECREASED GLUCOSE; Start 04/13/17 at 18: 00 Dextrose (D50w Syringe) 25 ml Q15M PRN IV DECREASED GLUCOSE; Start 04/13/17 at 18:00 Dextrose (D50w Syringe) 50 ml Q15M PRN IV DECREASED GLUCOSE; Start 04/13/17 at 18:00 Glucagon (Glucagen) 1 mg Q15M PRN IM DECREASED GLUCOSE; Start 04/13/17 at 18:00 Glucose (Glutose) 15 gm Q15M PRN BUCCAL DECREASED GLUCOSE; Start 04/13/17 at 18 :00 Insulin Glargine (Lantus) 30 unit QHS SC Last administered on 04/14/17 21:19; Admin Dose 30 UNIT; Start 04/14/17 at 21:00 Losartan Potassium (Cozaar) 25 mg BID PO Last administered on 04/15/17 08:36; Admin Dose 25 MG; Start 04/14/17 at 21:00 Linagliptin (Tradjenta) 5 mg DAILY PO Last administered on 04/15/17 08:36; Admin Dose 5 MG; Start 04/14/17 at 12:00 EMILY BRADFORD Apr 15, 2017 13:57
[2017-04-15 19:47] VITALS: BP 129/73; RESP 18
[2017-04-15] MEDS: ATORVASTATIN 80 MG TAB PO SCH (21:35)
[2017-04-15] MEDS: SENNA TAB PO SCH (21:35)
[2017-04-15] MEDS: LOSARTAN 50 MG TAB PO SCH (21:36)
[2017-04-15] MEDS: INSULIN GLARGINE [LANtus] 3 ML PEN SC SCH (21:49)
[2017-04-16] MEDS: ACCUCHECK AT 2AM (Patients on SS coverage) XX SCH (02:00)
[2017-04-16] MEDS: PANTOPRAZOLE (EC) 40 MG TAB PO SCH (06:02)
[2017-04-16] MEDS: AL HYDROX/MG HYDROX/SIMETH 30 ML CUP PO SCH ×4 (07:33→20:54)
[2017-04-16] MEDS: INSULIN ASPART [NOVOLOG] 3 ML PEN SC SCH ×3 (07:48→17:19)
[2017-04-16] MEDS: Insulin NOVOLOG SS MODERATE Algorithm (SS with meals and bedtime) SC SCH ×4 (07:49→21:00)
[2017-04-16 08:00] VITALS: BP 139/65; PULSE 87
[2017-04-16] MEDS: ENOXAPARIN 40 MG/0.4 ML SYG SC SCH (08:26)
[2017-04-16] MEDS: ASPIRIN (EC) 325 MG TAB PO SCH (08:27)
[2017-04-16] MEDS: LINAGLIPTIN 5 MG TABLET PO SCH (08:27)
[2017-04-16] MEDS: LOSARTAN 50 MG TAB PO SCH ×2 (08:27→20:54)
[2017-04-16] MEDS: AMLODIPINE 10 MG TAB PO SCH (08:29)
[2017-04-16] MEDS: DOCUSATE SODIUM 100 MG CAP PO SCH ×2 (08:30→20:55)
--- NOTE | 2017-04-16 18:35 | PN ---
Date/Time of Note Date/Time of Note DATE: 04/16/17 TIME: 18:34 Assessment/Plan VTE Prophylaxis VTE Prophylaxis Intervention: other Lines/Catheters IV Catheter Type (from Nrsg): Saline Lock Assessment/Plan Chief Complaint/Hosp Course DM CKD ASHD PLAN PT OT Problems: Subjective 24 Hr Interval Summary Respiratory: no complaints Cardiovascular: no complaints Exam/Review of Systems Vital Signs Vitals Vital Signs Date Time Temp Pulse Resp B/P Pulse Ox O2 Delivery O2 Flow Rate FiO2 04/16/17 08:00 97.6 87 139/65 Room Air 04/15/17 19:47 18 94 Intake and Output 04/15/17 04/15/17 04/16/17 15:00 23:00 07:00 Intake Total 1240 ml Output Total 320 ml 150 ml Balance 920 ml -150 ml Exam Neck: supple Respiratory: clear to auscultation Cardiovascular: regular rate and rhythm Gastrointestinal: soft Results Result Diagram: 04/14/17 0618 04/15/17 0630 Results 24 hrs Laboratory Tests Test 04/15/17 21:37 04/16/17 07:44 04/16/17 12:02 04/16/17 17:03 Bedside Glucose 139 142 163 93 Medications Medications Current Medications Acetaminophen (Tylenol Tab) 650 mg Q4H PRN PO PAIN AND OR ELEVATED TEMP; Start 04/12/17 at 22:30 Glucose (Glutose) 31 gm PRN PRN PO DECREASED GLUCOSE; Start 04/12/17 at 22:30 Dextrose (D50w Syringe) 50 ml PRN PRN IV DECREASED GLUCOSE; Start 04/12/17 at 22:30 Nitroglycerin (Nitroglycerin (Sl Tab) 0.4 Mg) 1 tab Q5M PRN SL ANGINA; Start at 22:30 Pantoprazole (Protonix Tab) 40 mg DAILY@06 PO Last administered on 04/16/17 06 :02; Admin Dose 40 MG; Start 04/13/17 at 06:00 Amlodipine Besylate (Norvasc) 10 mg DAILY PO Last administered on 04/16/17 08: 29; Admin Dose 10 MG; Start 04/13/17 at 09:00 Aspirin (Ecotrin) 325 mg DAILY PO Last administered on 04/16/17 08:27; Admin Dose 325 MG; Start 04/13/17 at 09:00 Atorvastatin Calcium (Lipitor) 80 mg HS PO Last administered on 04/15/17 21:35 ; Admin Dose 80 MG; Start 04/13/17 at 21:00 Enoxaparin Sodium (Lovenox) 40 mg DAILY SC Last administered on 04/16/17 08:26 ; Admin Dose 40 MG; Start 04/13/17 at 09:00 Diagnostic Test (Pha) (Accu-Chek) 1 ea 02 XX Last administered on 04/13/17 02: 55; Admin Dose 1 EA; Start 04/13/17 at 02:00 Docusate Sodium (Colace) 100 mg BID PO Last administered on 04/15/17 21:35; Admin Dose 100 MG; Start 04/13/17 at 09:00 Senna (Senokot) 1 tab HS PO Last administered on 04/15/17 21:35; Admin Dose 1 TAB; Start 04/13/17 at 21:00 Bisacodyl (Dulcolax Supp) 10 mg Q24H PRN [place] CONSTIPATION; Start 04/13/17 at 08: 30 Magnesium Hydroxide (Milk Of Mag) 30 ml Q12H PRN PO CONSTIPATION; Start at 08:30 Lactulose (Enulose) 20 gm Q24H PRN PO CONSTIPATION Last administered on 09:08; Admin Dose 20 GM; Start 04/13/17 at 08:30 Miscellaneous Information 1 ea NOTE XX ; Start 04/13/17 at 18:00 Glucose (Glutose) 15 gm Q15M PRN PO DECREASED GLUCOSE; Start 04/13/17 at 18:00 Glucose (Glutose) 22.5 gm Q15M PRN PO DECREASED GLUCOSE; Start 04/13/17 at 18: 00 Dextrose (D50w Syringe) 25 ml Q15M PRN IV DECREASED GLUCOSE; Start 04/13/17 at 18:00 Dextrose (D50w Syringe) 50 ml Q15M PRN IV DECREASED GLUCOSE; Start 04/13/17 at 18:00 Glucagon (Glucagen) 1 mg Q15M PRN IM DECREASED GLUCOSE; Start 04/13/17 at 18:00 Glucose (Glutose) 15 gm Q15M PRN BUCCAL DECREASED GLUCOSE; Start 04/13/17 at 18 :00 Insulin Glargine (Lantus) 30 unit QHS SC Last administered on 04/15/17 21:49; Admin Dose 30 UNIT; Start 04/14/17 at 21:00 Linagliptin (Tradjenta) 5 mg DAILY PO Last administered on 04/16/17 08:27; Admin Dose 5 MG; Start 04/14/17 at 12:00 Losartan Potassium (Cozaar) 50 mg BID PO Last administered on 04/16/17 08:27; Admin Dose 50 MG; Start 04/15/17 at 21:00 NOE MENDOZA MD Apr 16, 2017 18:35
[2017-04-16 20:00] VITALS: BP 143/77
[2017-04-16] MEDS: ATORVASTATIN 80 MG TAB PO SCH (20:54)
[2017-04-16] MEDS: SENNA TAB PO SCH (20:55)
[2017-04-16] MEDS: INSULIN GLARGINE [LANtus] 3 ML PEN SC SCH (21:00)
[2017-04-17] MEDS: ACCUCHECK AT 2AM (Patients on SS coverage) XX SCH (02:00)
[2017-04-17] MEDS: PANTOPRAZOLE (EC) 40 MG TAB PO SCH (06:46)
[2017-04-17 07:30] VITALS: BP 138/76; RESP 18
[2017-04-17] MEDS: AL HYDROX/MG HYDROX/SIMETH 30 ML CUP PO SCH ×4 (08:27→21:37)
[2017-04-17] MEDS: INSULIN ASPART [NOVOLOG] 3 ML PEN SC SCH ×3 (08:28→17:49)
[2017-04-17] MEDS: Insulin NOVOLOG SS MODERATE Algorithm (SS with meals and bedtime) SC SCH ×4 (08:28→21:00)
[2017-04-17] MEDS: LINAGLIPTIN 5 MG TABLET PO SCH (08:29)
[2017-04-17] MEDS: AMLODIPINE 10 MG TAB PO SCH (08:29)
[2017-04-17] MEDS: LOSARTAN 50 MG TAB PO SCH ×2 (08:29→21:41)
[2017-04-17] MEDS: ASPIRIN (EC) 325 MG TAB PO SCH (08:29)
[2017-04-17] MEDS: DOCUSATE SODIUM 100 MG CAP PO SCH ×2 (08:29→21:38)
[2017-04-17] MEDS: ENOXAPARIN 40 MG/0.4 ML SYG SC SCH (08:30)
--- NOTE | 2017-04-17 13:16 | CONS ---
Date/Time of Note Date/Time of Note DATE: 04/17/17 TIME: 13:14 Consult Date/Type/Reason Admit Date/Time Apr 12, 2017 at 21:24 Type of Consultation: Rehabilitation Objective Vital Signs Date Time Temp Pulse Resp B/P Pulse Ox O2 Delivery O2 Flow Rate FiO2 04/16/17 20:00 98.0 74 143/77 04/16/17 08:00 Room Air 04/15/17 19:47 18 94 Intake and Output 04/16/17 04/16/17 04/17/17 15:00 23:00 07:00 Intake Total 1000 ml 350 ml Output Total 900 ml 450 ml Balance 100 ml -100 ml INTERDISCIPLINARY TEAM CONFERENCE BOWEL- Cont BLADDER-Cont SKIN- intact OT- DRESSING-minimal moderate assist BATHING-minimal moderate assist TOILETING-minimal moderate PT- BED MOBILITY-minimal assist TRANSFERS-minimal assist AMBULATION-minimal assist SPEECH- COGNITION-minimal assist DYPHAGIA-tolerating current diet A/P- Interdisciplinary team conference held today. Please see interdisciplinary sheet. Working toward d.c. on 04/26 with post discharge follow up of physical therapy, occupational therapy. Functional Impact of Comorbidity:Patient's labile blood sugars had been affecting function, however his levels have been significantly improving with improved BS control. Results/Medications Result Diagram: 04/14/17 0618 04/15/17 0630 Results 24 hrs Laboratory Tests Test 04/16/17 17:03 04/16/17 20:52 04/17/17 07:45 04/17/17 12:06 Bedside Glucose 93 169 141 149 Medications Current Medications Acetaminophen (Tylenol Tab) 650 mg Q4H PRN PO PAIN AND OR ELEVATED TEMP; Start 04/12/17 at 22:30 Glucose (Glutose) 31 gm PRN PRN PO DECREASED GLUCOSE; Start 04/12/17 at 22:30 Dextrose (D50w Syringe) 50 ml PRN PRN IV DECREASED GLUCOSE; Start 04/12/17 at 22:30 Nitroglycerin (Nitroglycerin (Sl Tab) 0.4 Mg) 1 tab Q5M PRN SL ANGINA; Start at 22:30 Pantoprazole (Protonix Tab) 40 mg DAILY@06 PO Last administered on 04/17/17t 06 :46; Admin Dose 40 MG; Start 04/13/17 at 06:00 Amlodipine Besylate (Norvasc) 10 mg DAILY PO Last administered on 04/17/17 08: 29; Admin Dose 10 MG; Start 04/13/17 at 09:00 Aspirin (Ecotrin) 325 mg DAILY PO Last administered on 04/17/17 08:29; Admin Dose 325 MG; Start 04/13/17 at 09:00 Atorvastatin Calcium (Lipitor) 80 mg HS PO Last administered on 04/16/17 20:54 ; Admin Dose 80 MG; Start 04/13/17 at 21:00 Enoxaparin Sodium (Lovenox) 40 mg DAILY SC Last administered on 04/17/17 08:30 ; Admin Dose 40 MG; Start 04/13/17 at 09:00 Diagnostic Test (Pha) (Accu-Chek) 1 ea 02 XX Last administered on 04/13/17 02: 55; Admin Dose 1 EA; Start 04/13/17 at 02:00 Docusate Sodium (Colace) 100 mg BID PO Last administered on 04/17/17 08:29; Admin Dose 100 MG; Start 04/13/17 at 09:00 Senna (Senokot) 1 tab HS PO Last administered on 04/16/17 20:55; Admin Dose 1 TAB; Start 04/13/17 at 21:00 Bisacodyl (Dulcolax Supp) 10 mg Q24H PRN [place] CONSTIPATION; Start 04/13/17 at 08: 30 Magnesium Hydroxide (Milk Of Mag) 30 ml Q12H PRN PO CONSTIPATION; Start at 08:30 Lactulose (Enulose) 20 gm Q24H PRN PO CONSTIPATION Last administered on 09:08; Admin Dose 20 GM; Start 04/13/17 at 08:30 Miscellaneous Information 1 ea NOTE XX ; Start 04/13/17 at 18:00 Glucose (Glutose) 15 gm Q15M PRN PO DECREASED GLUCOSE; Start 04/13/17 at 18:00 Glucose (Glutose) 22.5 gm Q15M PRN PO DECREASED GLUCOSE; Start 04/13/17 at 18: 00 Dextrose (D50w Syringe) 25 ml Q15M PRN IV DECREASED GLUCOSE; Start 04/13/17 at 18:00 Dextrose (D50w Syringe) 50 ml Q15M PRN IV DECREASED GLUCOSE; Start 04/13/17 at 18:00 Glucagon (Glucagen) 1 mg Q15M PRN IM DECREASED GLUCOSE; Start 04/13/17 at 18:00 Glucose (Glutose) 15 gm Q15M PRN BUCCAL DECREASED GLUCOSE; Start 04/13/17 at 18 :00 Insulin Glargine (Lantus) 30 unit QHS SC Last administered on 04/16/17 21:00; Admin Dose 30 UNIT; Start 04/14/17 at 21:00 Linagliptin (Tradjenta) 5 mg DAILY PO Last administered on 04/17/17 08:29; Admin Dose 5 MG; Start 04/14/17 at 12:00 Losartan Potassium (Cozaar) 50 mg BID PO Last administered on 04/17/17 08:29; Admin Dose 50 MG; Start 04/15/17 at 21:00 Assessment/Plan Chief Complaint/Hosp Course Patient is a pleasant 66-year-old right-handed gentleman with a history of diabetes mellitus type 2, hypertension, and hyperlipidemia who presented to [facility] with 2 days of left-sided weakness. Patient reports a ground-level fall due to his weakness. Patient was noted to have right basal ganglia infarct. Patient's hospital course was also notable for uncontrolled diabetes with blood sugar greater than 500. Patient has been cleared to transfer to the rehabilitation unit for comprehensive interdisciplinary rehab care. Problems: EVANGELINA RAMIREZ MD Apr 17, 2017 13:15
[2017-04-17 20:00] VITALS: BP 157/84; PULSE 72
--- NOTE | 2017-04-17 21:31 | PN ---
Date/Time of Note Date/Time of Note DATE: 04/17/17 TIME: 21:30 Assessment/Plan VTE Prophylaxis VTE Prophylaxis Intervention: other Lines/Catheters IV Catheter Type (from Nrs): Saline Lock Assessment/Plan Chief Complaint/Hosp Course DM CKD ASHD CVA PLAN PT OT SS INSULIN Problems: Subjective 24 Hr Interval Summary Respiratory: no complaints Cardiovascular: no complaints Exam/Review of Systems Vital Signs Vitals Vital Signs Date Time Temp Pulse Resp B/P Pulse Ox O2 Delivery O2 Flow Rate FiO2 04/17/17 07:30 98.5 65 18 138/76 91 04/16/17 08:00 Room Air Intake and Output 04/16/17 04/16/17 04/17/17 15:00 23:00 07:00 Intake Total 1000 ml 350 ml Output Total 900 ml 450 ml Balance 100 ml -100 ml Exam Respiratory: clear to auscultation Cardiovascular: regular rate and rhythm Gastrointestinal: soft Results Result Diagram: 04/14/17 0618 04/15/17 0630 Results 24 hrs Laboratory Tests Test 04/17/17 07:45 04/17/17 12:06 04/17/17 17:18 Bedside Glucose 141 149 189 Medications Medications Current Medications Acetaminophen (Tylenol Tab) 650 mg Q4H PRN PO PAIN AND OR ELEVATED TEMP; Start 04/12/17 at 22:30 Glucose (Glutose) 31 gm PRN PRN PO DECREASED GLUCOSE; Start 04/12/17 at 22:30 Dextrose (D50w Syringe) 50 ml PRN PRN IV DECREASED GLUCOSE; Start 04/12/17 at 22:30 Nitroglycerin (Nitroglycerin (Sl Tab) 0.4 Mg) 1 tab Q5M PRN SL ANGINA; Start at 22:30 Pantoprazole (Protonix Tab) 40 mg DAILY@06 PO Last administered on 04/17/17 06 :46; Admin Dose 40 MG; Start 04/13/17 at 06:00 Amlodipine Besylate (Norvasc) 10 mg DAILY PO Last administered on 04/17/17 08: 29; Admin Dose 10 MG; Start 04/13/17 at 09:00 Aspirin (Ecotrin) 325 mg DAILY PO Last administered on 04/17/17 08:29; Admin Dose 325 MG; Start 04/13/17 at 09:00 Atorvastatin Calcium (Lipitor) 80 mg HS PO Last administered on 04/16/17 20:54 ; Admin Dose 80 MG; Start 04/13/17 at 21:00 Enoxaparin Sodium (Lovenox) 40 mg DAILY SC Last administered on 04/17/17 08:30 ; Admin Dose 40 MG; Start 04/13/17 at 09:00 Diagnostic Test (Pha) (Accu-Chek) 1 ea 02 XX Last administered on 04/13/17 02: 55; Admin Dose 1 EA; Start 04/13/17 at 02:00 Docusate Sodium (Colace) 100 mg BID PO Last administered on 04/17/17 08:29; Admin Dose 100 MG; Start 04/13/17 at 09:00 Senna (Senokot) 1 tab HS PO Last administered on 04/16/17 20:55; Admin Dose 1 TAB; Start 04/13/17 at 21:00 Bisacodyl (Dulcolax Supp) 10 mg Q24H PRN [place] CONSTIPATION; Start 04/13/17 at 08: 30 Magnesium Hydroxide (Milk Of Mag) 30 ml Q12H PRN PO CONSTIPATION; Start at 08:30 Lactulose (Enulose) 20 gm Q24H PRN PO CONSTIPATION Last administered on 09:08; Admin Dose 20 GM; Start 04/13/17 at 08:30 Miscellaneous Information 1 ea NOTE XX ; Start 04/13/17 at 18:00 Glucose (Glutose) 15 gm Q15M PRN PO DECREASED GLUCOSE; Start 04/13/17 at 18:00 Glucose (Glutose) 22.5 gm Q15M PRN PO DECREASED GLUCOSE; Start 04/13/17 at 18: 00 Dextrose (D50w Syringe) 25 ml Q15M PRN IV DECREASED GLUCOSE; Start 04/13/17 at 18:00 Dextrose (D50w Syringe) 50 ml Q15M PRN IV DECREASED GLUCOSE; Start 04/13/17 at 18:00 Glucagon (Glucagen) 1 mg Q15M PRN IM DECREASED GLUCOSE; Start 04/13/17 at 18:00 Glucose (Glutose) 15 gm Q15M PRN BUCCAL DECREASED GLUCOSE; Start 04/13/17 at 18 :00 Insulin Glargine (Lantus) 30 unit QHS SC Last administered on 04/16/17 21:00; Admin Dose 30 UNIT; Start 04/14/17 at 21:00 Linagliptin (Tradjenta) 5 mg DAILY PO Last administered on 04/17/17 08:29; Admin Dose 5 MG; Start 04/14/17 at 12:00 Losartan Potassium (Cozaar) 50 mg BID PO Last administered on 04/17/17 08:29; Admin Dose 50 MG; Start 04/15/17 at 21:00 NOE MENDOZA MD Apr 17, 2017 21:31
[2017-04-17] MEDS: ATORVASTATIN 80 MG TAB PO SCH (21:37)
[2017-04-17] MEDS: SENNA TAB PO SCH (21:37)
[2017-04-17] MEDS: INSULIN GLARGINE [LANtus] 3 ML PEN SC SCH (21:51)
[2017-04-18] MEDS: ACCUCHECK AT 2AM (Patients on SS coverage) XX SCH (02:00)
[2017-04-18] MEDS: PANTOPRAZOLE (EC) 40 MG TAB PO SCH (05:53)
[2017-04-18] MEDS: AL HYDROX/MG HYDROX/SIMETH 30 ML CUP PO SCH ×4 (07:05→21:10)
[2017-04-18] MEDS: Insulin NOVOLOG SS MODERATE Algorithm (SS with meals and bedtime) SC SCH ×4 (07:35→21:16)
[2017-04-18 08:00] VITALS: BP 132/76; RESP 18
[2017-04-18] MEDS: INSULIN ASPART [NOVOLOG] 3 ML PEN SC SCH ×3 (08:34→17:50)
[2017-04-18] MEDS: ENOXAPARIN 40 MG/0.4 ML SYG SC SCH (08:34)
[2017-04-18] MEDS: LINAGLIPTIN 5 MG TABLET PO SCH (08:35)
[2017-04-18] MEDS: DOCUSATE SODIUM 100 MG CAP PO SCH ×2 (08:35→21:10)
[2017-04-18] MEDS: AMLODIPINE 10 MG TAB PO SCH (08:35)
[2017-04-18] MEDS: LOSARTAN 50 MG TAB PO SCH ×2 (08:35→21:09)
[2017-04-18] MEDS: ASPIRIN (EC) 325 MG TAB PO SCH (08:35)
--- NOTE | 2017-04-18 12:06 | CONS ---
Date/Time of Note Date/Time of Note DATE: 04/18/17 TIME: 12:04 Consult Date/Type/Reason Admit Date/Time Apr 12, 2017 at 21:24 Type of Consultation: Rehabilitation Subjective Comfortable doing well family present Objective Lungs clear anteriorly Contact-guard assist ambulation Vital Signs Date Time Temp Pulse Resp B/P Pulse Ox O2 Delivery O2 Flow Rate FiO2 04/18/17 08:00 98.8 63 18 132/76 96 04/17/17 20:00 Room Air Intake and Output 04/17/17 04/17/17 04/18/17 15:00 23:00 07:00 Intake Total 680 ml 200 ml Output Total 491 ml 400 ml Balance 189 ml -200 ml Results/Medications Result Diagram: 04/14/1761704/15/17 0630 Results 24 hrs Laboratory Tests Test 04/17/17 12:06 04/17/17 17:18 04/17/17 21:36 04/18/17 07:50 Bedside Glucose 149 189 121 116 Medications Current Medications Acetaminophen (Tylenol Tab) 650 mg Q4H PRN PO PAIN AND OR ELEVATED TEMP; Start 04/12/17 at 22:30 Glucose (Glutose) 31 gm PRN PRN PO DECREASED GLUCOSE; Start 04/12/17 at 22:30 Dextrose (D50w Syringe) 50 ml PRN PRN IV DECREASED GLUCOSE; Start 04/12/17 at 22:30 Nitroglycerin (Nitroglycerin (Sl Tab) 0.4 Mg) 1 tab Q5M PRN SL ANGINA; Start at 22:30 Pantoprazole (Protonix Tab) 40 mg DAILY@06 PO Last administered on 04/18/17 05 :53; Admin Dose 40 MG; Start 04/13/17 at 06:00 Amlodipine Besylate (Norvasc) 10 mg DAILY PO Last administered on 04/18/17 08: 35; Admin Dose 10 MG; Start 04/13/17 at 09:00 Aspirin (Ecotrin) 325 mg DAILY PO Last administered on 04/18/17 08:35; Admin Dose 325 MG; Start 04/13/17 at 09:00 Atorvastatin Calcium (Lipitor) 80 mg HS PO Last administered on 04/17/17 21:37 ; Admin Dose 80 MG; Start 04/13/17 at 21:00 Enoxaparin Sodium (Lovenox) 40 mg DAILY SC Last administered on 04/18/17 08:34 ; Admin Dose 40 MG; Start 04/13/17 at 09:00 Diagnostic Test (Pha) (Accu-Chek) 1 ea 02 XX Last administered on 04/13/17 02: 55; Admin Dose 1 EA; Start 04/13/17 at 02:00 Docusate Sodium (Colace) 100 mg BID PO Last administered on 04/18/17 08:35; Admin Dose 100 MG; Start 04/13/17 at 09:00 Senna (Senokot) 1 tab HS PO Last administered on 04/17/17 21:37; Admin Dose 1 TAB; Start 04/13/17 at 21:00 Bisacodyl (Dulcolax Supp) 10 mg Q24H PRN [place] CONSTIPATION; Start 04/13/17 at 08: 30 Magnesium Hydroxide (Milk Of Mag) 30 ml Q12H PRN PO CONSTIPATION; Start at 08:30 Lactulose (Enulose) 20 gm Q24H PRN PO CONSTIPATION Last administered on 09:08; Admin Dose 20 GM; Start 04/13/17 at 08:30 Miscellaneous Information 1 ea NOTE XX ; Start 04/13/17 at 18:00 Glucose (Glutose) 15 gm Q15M PRN PO DECREASED GLUCOSE; Start 04/13/17 at 18:00 Glucose (Glutose) 22.5 gm Q15M PRN PO DECREASED GLUCOSE; Start 04/13/17 at 18: 00 Dextrose (D50w Syringe) 25 ml Q15M PRN IV DECREASED GLUCOSE; Start 04/13/17 at 18:00 Dextrose (D50w Syringe) 50 ml Q15M PRN IV DECREASED GLUCOSE; Start 04/13/17 at 18:00 Glucagon (Glucagen) 1 mg Q15M PRN IM DECREASED GLUCOSE; Start 04/13/17 at 18:00 Glucose (Glutose) 15 gm Q15M PRN BUCCAL DECREASED GLUCOSE; Start 04/13/17 at 18 :00 Insulin Glargine (Lantus) 30 unit QHS SC Last administered on 04/17/17 21:51; Admin Dose 30 UNIT; Start 04/14/17 at 21:00 Linagliptin (Tradjenta) 5 mg DAILY PO Last administered on 04/18/17 08:35; Admin Dose 5 MG; Start 04/14/17 at 12:00 Losartan Potassium (Cozaar) 50 mg BID PO Last administered on 04/18/17 08:35; Admin Dose 50 MG; Start 04/15/17 at 21:00 Assessment/Plan Additional Assessment/Plan Rehabilitation- right basal ganglia infarct CVA with left-sided weakness Excellent progress, continue treatment plan uncontrolled diabetes mellitus type 2-patient with newly diagnosed diabetes. Continue diabetic education hypertension hyperlipidemia history of CVA with good functional recovery EVANGELINA RAMIREZ MD Apr 18, 2017 12:05
[2017-04-18 20:00] VITALS: BP 131/63; RESP 18
[2017-04-18] MEDS: SENNA TAB PO SCH (21:09)
[2017-04-18] MEDS: ATORVASTATIN 80 MG TAB PO SCH (21:10)
[2017-04-18] MEDS: INSULIN GLARGINE [LANtus] 3 ML PEN SC SCH (21:20)
--- NOTE | 2017-04-18 23:14 | PN ---
Date/Time of Note Date/Time of Note DATE: 04/18/17 TIME: 23:14 Assessment/Plan VTE Prophylaxis VTE Prophylaxis Intervention: other Lines/Catheters IV Catheter Type (from Nrsg): Saline Lock Assessment/Plan Chief Complaint/Hosp Course DM CKD ASHD CVA PLAN PT OT SS INSULIN stable Problems: Subjective 24 Hr Interval Summary Cardiovascular: no complaints Gastrointestinal: no complaints Exam/Review of Systems Vital Signs Vitals Vital Signs Date Time Temp Pulse Resp B/P Pulse Ox O2 Delivery O2 Flow Rate FiO2 04/18/17 08:00 98.8 63 18 132/76 96 04/17/17 20:00 Room Air Intake and Output 04/17/17 04/17/17 04/18/17 15:00 23:00 07:00 Intake Total 680 ml 200 ml Output Total 491 ml 400 ml Balance 189 ml -200 ml Exam Respiratory: clear to auscultation Cardiovascular: regular rate and rhythm Gastrointestinal: soft Musculoskeletal: nl extremities to inspection Results Result Diagram: 04/14/17 0618 04/15/17 0630 Results 24 hrs Laboratory Tests Test 04/18/17 07:50 04/18/17 12:08 04/18/17 17:29 04/18/17 21:05 Bedside Glucose 116 156 153 237 H Medications Medications Current Medications Acetaminophen (Tylenol Tab) 650 mg Q4H PRN PO PAIN AND OR ELEVATED TEMP; Start 04/12/17 at 22:30 Glucose (Glutose) 31 gm PRN PRN PO DECREASED GLUCOSE; Start 04/12/17 at 22:30 Dextrose (D50w Syringe) 50 ml PRN PRN IV DECREASED GLUCOSE; Start 04/12/17 at 22:30 Nitroglycerin (Nitroglycerin (Sl Tab) 0.4 Mg) 1 tab Q5M PRN SL ANGINA; Start at 22:30 Pantoprazole (Protonix Tab) 40 mg DAILY@06 PO Last administered on 04/18/17 05 :53; Admin Dose 40 MG; Start 04/13/17 at 06:00 Amlodipine Besylate (Norvasc) 10 mg DAILY PO Last administered on 04/18/17 08: 35; Admin Dose 10 MG; Start 04/13/17 at 09:00 Aspirin (Ecotrin) 325 mg DAILY PO Last administered on 04/18/17 08:35; Admin Dose 325 MG; Start 04/13/17 at 09:00 Atorvastatin Calcium (Lipitor) 80 mg HS PO Last administered on 04/18/17 21:10 ; Admin Dose 80 MG; Start 04/13/17 at 21:00 Enoxaparin Sodium (Lovenox) 40 mg DAILY SC Last administered on 04/18/17 08:34 ; Admin Dose 40 MG; Start 04/13/17 at 09:00 Diagnostic Test (Pha) (Accu-Chek) 1 ea 02 XX Last administered on 04/13/17 02: 55; Admin Dose 1 EA; Start 04/13/17 at 02:00 Docusate Sodium (Colace) 100 mg BID PO Last administered on 04/18/17 21:10; Admin Dose 100 MG; Start 04/13/17 at 09:00 Senna (Senokot) 1 tab HS PO Last administered on 04/18/17 21:09; Admin Dose 1 TAB; Start 04/13/17 at 21:00 Bisacodyl (Dulcolax Supp) 10 mg Q24H PRN [place] CONSTIPATION; Start 04/13/17 at 08: 30 Magnesium Hydroxide (Milk Of Mag) 30 ml Q12H PRN PO CONSTIPATION; Start at 08:30 Lactulose (Enulose) 20 gm Q24H PRN PO CONSTIPATION Last administered on 09:08; Admin Dose 20 GM; Start 04/13/17 at 08:30 Miscellaneous Information 1 ea NOTE XX ; Start 04/13/17 at 18:00 Glucose (Glutose) 15 gm Q15M PRN PO DECREASED GLUCOSE; Start 04/13/17 at 18:00 Glucose (Glutose) 22.5 gm Q15M PRN PO DECREASED GLUCOSE; Start 04/13/17 at 18: 00 Dextrose (D50w Syringe) 25 ml Q15M PRN IV DECREASED GLUCOSE; Start 04/13/17 at 18:00 Dextrose (D50w Syringe) 50 ml Q15M PRN IV DECREASED GLUCOSE; Start 04/13/17 at 18:00 Glucagon (Glucagen) 1 mg Q15M PRN IM DECREASED GLUCOSE; Start 04/13/17 at 18:00 Glucose (Glutose) 15 gm Q15M PRN BUCCAL DECREASED GLUCOSE; Start 04/13/17 at 18 :00 Insulin Glargine (Lantus) 30 unit QHS SC Last administered on 04/18/17 21:20; Admin Dose 30 UNIT; Start 04/14/17 at 21:00 Linagliptin (Tradjenta) 5 mg DAILY PO Last administered on 04/18/17 08:35; Admin Dose 5 MG; Start 04/14/17 at 12:00 Losartan Potassium (Cozaar) 50 mg BID PO Last administered on 04/18/17 21:09; Admin Dose 50 MG; Start 04/15/17 at 21:00 NOE MENDOZA MD Apr 18, 2017 23:14
[2017-04-19] MEDS: ACCUCHECK AT 2AM (Patients on SS coverage) XX SCH (02:00)
[2017-04-19] MEDS: PANTOPRAZOLE (EC) 40 MG TAB PO SCH (06:31)
[2017-04-19 07:48] VITALS: BP 121/59; RESP 18
[2017-04-19] MEDS: AL HYDROX/MG HYDROX/SIMETH 30 ML CUP PO SCH ×4 (08:14→21:35)
[2017-04-19] MEDS: INSULIN ASPART [NOVOLOG] 3 ML PEN SC SCH ×3 (08:16→17:41)
[2017-04-19] MEDS: Insulin NOVOLOG SS MODERATE Algorithm (SS with meals and bedtime) SC SCH ×4 (08:17→21:43)
[2017-04-19] MEDS: ENOXAPARIN 40 MG/0.4 ML SYG SC SCH (08:18)
[2017-04-19] MEDS: AMLODIPINE 10 MG TAB PO SCH (08:20)
[2017-04-19] MEDS: DOCUSATE SODIUM 100 MG CAP PO SCH ×2 (08:21→21:34)
[2017-04-19] MEDS: LOSARTAN 50 MG TAB PO SCH ×2 (08:21→21:34)
[2017-04-19] MEDS: LINAGLIPTIN 5 MG TABLET PO SCH (08:21)
[2017-04-19] MEDS: ASPIRIN (EC) 325 MG TAB PO SCH (08:21)
--- NOTE | 2017-04-19 11:52 | CONS ---
Date/Time of Note Date/Time of Note DATE: 04/19/17 TIME: 11:52 Consult Date/Type/Reason Admit Date/Time Apr 12, 2017 at 21:24 Type of Consultation: Rehabilitation Subjective Motivated Objective pulm-cta cga 125 feet Vital Signs Date Time Temp Pulse Resp B/P Pulse Ox O2 Delivery O2 Flow Rate FiO2 04/19/17 07:48 97.9 82 18 121/59 96 04/17/17 20:00 Room Air Intake and Output 04/18/17 04/18/17 04/19/17 15:00 23:00 07:00 Intake Total 1200 ml 600 ml Output Total 400 ml 300 ml 650 ml Balance 800 ml 300 ml -650 ml Results/Medications Result Diagram: 04/15/17 0630 Results 24 hrs Laboratory Tests Test 04/18/17 12:08 04/18/17 17:29 04/18/17 21:05 04/19/17 02:08 Bedside Glucose 156 153 237 H 232 H Test 04/19/17 07:46 Bedside Glucose 149 Medications Current Medications Acetaminophen (Tylenol Tab) 650 mg Q4H PRN PO PAIN AND OR ELEVATED TEMP; Start 04/12/17 at 22:30 Glucose (Glutose) 31 gm PRN PRN PO DECREASED GLUCOSE; Start 04/12/17 at 22:30 Dextrose (D50w Syringe) 50 ml PRN PRN IV DECREASED GLUCOSE; Start 04/12/17 at 22:30 Nitroglycerin (Nitroglycerin (Sl Tab) 0.4 Mg) 1 tab Q5M PRN SL ANGINA; Start at 22:30 Pantoprazole (Protonix Tab) 40 mg DAILY@06 PO Last administered on 04/19/17 06 :31; Admin Dose 40 MG; Start 04/13/17 at 06:00 Amlodipine Besylate (Norvasc) 10 mg DAILY PO Last administered on 04/19/17 08: 20; Admin Dose 10 MG; Start 04/13/17 at 09:00 Aspirin (Ecotrin) 325 mg DAILY PO Last administered on 04/19/17 08:21; Admin Dose 325 MG; Start 04/13/17 at 09:00 Atorvastatin Calcium (Lipitor) 80 mg HS PO Last administered on 04/18/17 21:10 ; Admin Dose 80 MG; Start 04/13/17 at 21:00 Enoxaparin Sodium (Lovenox) 40 mg DAILY SC Last administered on 04/19/17 08:18 ; Admin Dose 40 MG; Start 04/13/17 at 09:00 Diagnostic Test (Pha) (Accu-Chek) 1 ea 02 XX Last administered on 04/19/17 02: 00; Admin Dose 1 EA; Start 04/13/17 at 02:00 Docusate Sodium (Colace) 100 mg BID PO Last administered on 04/19/17 08:21; Admin Dose 100 MG; Start 04/13/17 at 09:00 Senna (Senokot) 1 tab HS PO Last administered on 04/18/17 21:09; Admin Dose 1 TAB; Start 04/13/17 at 21:00 Bisacodyl (Dulcolax Supp) 10 mg Q24H PRN [place] CONSTIPATION; Start 04/13/17 at 08: 30 Magnesium Hydroxide (Milk Of Mag) 30 ml Q12H PRN PO CONSTIPATION; Start at 08:30 Lactulose (Enulose) 20 gm Q24H PRN PO CONSTIPATION Last administered on 09:08; Admin Dose 20 GM; Start 04/13/17 at 08:30 Miscellaneous Information 1 ea NOTE XX ; Start 04/13/17 at 18:00 Glucose (Glutose) 15 gm Q15M PRN PO DECREASED GLUCOSE; Start 04/13/17 at 18:00 Glucose (Glutose) 22.5 gm Q15M PRN PO DECREASED GLUCOSE; Start 04/13/17 at 18: 00 Dextrose (D50w Syringe) 25 ml Q15M PRN IV DECREASED GLUCOSE; Start 04/13/17 at 18:00 Dextrose (D50w Syringe) 50 ml Q15M PRN IV DECREASED GLUCOSE; Start 04/13/17 at 18:00 Glucagon (Glucagen) 1 mg Q15M PRN IM DECREASED GLUCOSE; Start 04/13/17 at 18:00 Glucose (Glutose) 15 gm Q15M PRN BUCCAL DECREASED GLUCOSE; Start 04/13/17 at 18 :00 Insulin Glargine (Lantus) 30 unit QHS SC Last administered on 04/18/17 21:20; Admin Dose 30 UNIT; Start 04/14/17 at 21:00 Linagliptin (Tradjenta) 5 mg DAILY PO Last administered on 04/19/17 08:21; Admin Dose 5 MG; Start 04/14/17 at 12:00 Losartan Potassium (Cozaar) 50 mg BID PO Last administered on 04/19/17 08:21; Admin Dose 50 MG; Start 04/15/17 at 21:00 Assessment/Plan Additional Assessment/Plan Rehabilitation- 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 Continue diabetic education hypertension hyperlipidemia history of CVA with good functional recovery EVANGELINA RAMIREZ MD Apr 19, 2017 11:52
[2017-04-19 20:06] VITALS: BP 135/80; RESP 18
[2017-04-19] MEDS: SENNA TAB PO SCH (21:00)
[2017-04-19] MEDS: ATORVASTATIN 80 MG TAB PO SCH (21:34)
[2017-04-19] MEDS: INSULIN GLARGINE [LANtus] 3 ML PEN SC SCH (21:44)
--- NOTE | 2017-04-19 22:45 | PN ---
Date/Time of Note Date/Time of Note DATE: 04/19/17 TIME: 22:44 Assessment/Plan VTE Prophylaxis VTE Prophylaxis Intervention: other Lines/Catheters IV Catheter Type (from Nrsg): Saline Lock Assessment/Plan Chief Complaint/Hosp Course DM CKD ASHD CVA PLAN PT OT SS INSULIN stable Problems: Subjective 24 Hr Interval Summary Gastrointestinal: no complaints Genitourinary: no complaints Exam/Review of Systems Vital Signs Vitals Vital Signs Date Time Temp Pulse Resp B/P Pulse Ox O2 Delivery O2 Flow Rate FiO2 04/19/17 20:06 98.7 70 18 135/80 97 04/17/17 20:00 Room Air Intake and Output 04/18/17 04/18/17 04/19/17 15:00 23:00 07:00 Intake Total 1200 ml 600 ml Output Total 400 ml 300 ml 650 ml Balance 800 ml 300 ml -650 ml Exam Cardiovascular: regular rate and rhythm Gastrointestinal: soft Musculoskeletal: nl extremities to inspection Results Result Diagram: 04/15/17 0630 Results 24 hrs Laboratory Tests Test 04/19/17 02:08 04/19/17 07:46 04/19/17 12:09 04/19/17 17:17 Bedside Glucose 232 H 149 167 204 Test 04/19/17 21:32 Bedside Glucose 228 H Medications Medications Current Medications Acetaminophen (Tylenol Tab) 650 mg Q4H PRN PO PAIN AND OR ELEVATED TEMP; Start 04/12/17 at 22:30 Glucose (Glutose) 31 gm PRN PRN PO DECREASED GLUCOSE; Start 04/12/17 at 22:30 Dextrose (D50w Syringe) 50 ml PRN PRN IV DECREASED GLUCOSE; Start 04/12/17 at 22:30 Nitroglycerin (Nitroglycerin (Sl Tab) 0.4 Mg) 1 tab Q5M PRN SL ANGINA; Start at 22:30 Pantoprazole (Protonix Tab) 40 mg DAILY@06 PO Last administered on 04/19/17 06 :31; Admin Dose 40 MG; Start 04/13/17 at 06:00 Amlodipine Besylate (Norvasc) 10 mg DAILY PO Last administered on 04/19/17 08: 20; Admin Dose 10 MG; Start 04/13/17 at 09:00 Aspirin (Ecotrin) 325 mg DAILY PO Last administered on 04/19/17 08:21; Admin Dose 325 MG; Start 04/13/17 at 09:00 Atorvastatin Calcium (Lipitor) 80 mg HS PO Last administered on 04/19/17 21:34 ; Admin Dose 80 MG; Start 04/13/17 at 21:00 Enoxaparin Sodium (Lovenox) 40 mg DAILY SC Last administered on 04/19/17 08:18 ; Admin Dose 40 MG; Start 04/13/17 at 09:00 Diagnostic Test (Pha) (Accu-Chek) 1 ea 02 XX Last administered on 04/19/17 02: 00; Admin Dose 1 EA; Start 04/13/17 at 02:00 Docusate Sodium (Colace) 100 mg BID PO Last administered on 04/19/17 21:34; Admin Dose 100 MG; Start 04/13/17 at 09:00 Senna (Senokot) 1 tab HS PO Last administered on 04/18/17 21:09; Admin Dose 1 TAB; Start 04/13/17 at 21:00 Bisacodyl (Dulcolax Supp) 10 mg Q24H PRN [place] CONSTIPATION; Start 04/13/17 at 08: 30 Magnesium Hydroxide (Milk Of Mag) 30 ml Q12H PRN PO CONSTIPATION; Start at 08:30 Lactulose (Enulose) 20 gm Q24H PRN PO CONSTIPATION Last administered on 09:08; Admin Dose 20 GM; Start 04/13/17 at 08:30 Miscellaneous Information 1 ea NOTE XX ; Start 04/13/17 at 18:00 Glucose (Glutose) 15 gm Q15M PRN PO DECREASED GLUCOSE; Start 04/13/17 at 18:00 Glucose (Glutose) 22.5 gm Q15M PRN PO DECREASED GLUCOSE; Start 04/13/17 at 18: 00 Dextrose (D50w Syringe) 25 ml Q15M PRN IV DECREASED GLUCOSE; Start 04/13/17 at 18:00 Dextrose (D50w Syringe) 50 ml Q15M PRN IV DECREASED GLUCOSE; Start 04/13/17 at 18:00 Glucagon (Glucagen) 1 mg Q15M PRN IM DECREASED GLUCOSE; Start 04/13/17 at 18:00 Glucose (Glutose) 15 gm Q15M PRN BUCCAL DECREASED GLUCOSE; Start 04/13/17 at 18 :00 Insulin Glargine (Lantus) 30 unit QHS SC Last administered on 04/19/17 21:44; Admin Dose 30 UNIT; Start 04/14/17 at 21:00 Linagliptin (Tradjenta) 5 mg DAILY PO Last administered on 04/19/17 08:21; Admin Dose 5 MG; Start 04/14/17 at 12:00 Losartan Potassium (Cozaar) 50 mg BID PO Last administered on 04/19/17 21:34; Admin Dose 50 MG; Start 04/15/17 at 21:00 NOE MENDOZA MD Apr 19, 2017 22:45
[2017-04-20 02:00] VITALS: BP 136/74; RESP 18
[2017-04-20] MEDS: ACCUCHECK AT 2AM (Patients on SS coverage) XX SCH (02:05)
[2017-04-20] MEDS: PANTOPRAZOLE (EC) 40 MG TAB PO SCH (06:24)
[2017-04-20 07:30] VITALS: BP 152/81; RESP 18
[2017-04-20] MEDS: INSULIN ASPART [NOVOLOG] 3 ML PEN SC SCH ×3 (08:17→17:47)
[2017-04-20] MEDS: Insulin NOVOLOG SS MODERATE Algorithm (SS with meals and bedtime) SC SCH ×4 (08:18→21:00)
[2017-04-20] MEDS: ASPIRIN (EC) 325 MG TAB PO SCH (08:54)
[2017-04-20] MEDS: LINAGLIPTIN 5 MG TABLET PO SCH (08:54)
[2017-04-20] MEDS: AL HYDROX/MG HYDROX/SIMETH 30 ML CUP PO SCH ×4 (08:54→21:28)
[2017-04-20] MEDS: AMLODIPINE 10 MG TAB PO SCH (08:57)
[2017-04-20] MEDS: DOCUSATE SODIUM 100 MG CAP PO SCH ×2 (08:57→21:27)
[2017-04-20] MEDS: LOSARTAN 50 MG TAB PO SCH ×2 (08:57→21:28)
[2017-04-20] MEDS: ENOXAPARIN 40 MG/0.4 ML SYG SC SCH (09:04)
--- NOTE | 2017-04-20 11:27 | CONS ---
Date/Time of Note Date/Time of Note DATE: 04/20/17 TIME: 11:26 Consult Date/Type/Reason Admit Date/Time Apr 12, 2017 at 21:24 Type of Consultation: Rehabilitation Subjective No new complaint Objective Lungs clear anteriorly Min assist ambulation Vital Signs Date Time Temp Pulse Resp B/P Pulse Ox O2 Delivery O2 Flow Rate FiO2 04/20/17 07:30 99.1 79 18 152/81 91 04/17/17 20:00 Room Air Intake and Output 04/19/17 04/19/17 04/20/17 15:00 23:00 07:00 Intake Total 840 ml 600 ml 250 ml Output Total 650 ml 400 ml 650 ml Balance 190 ml 200 ml -400 ml Results/Medications Results 24 hrs Laboratory Tests Test 04/19/17 12:09 04/19/17 17:17 04/19/17 21:32 04/20/17 02:00 Bedside Glucose 167 204 228 H 274 H Test 04/20/17 08:03 Bedside Glucose 196 Medications Current Medications Acetaminophen (Tylenol Tab) 650 mg Q4H PRN PO PAIN AND OR ELEVATED TEMP; Start 04/12/17 at 22:30 Glucose (Glutose) 31 gm PRN PRN PO DECREASED GLUCOSE; Start 04/12/17 at 22:30 Dextrose (D50w Syringe) 50 ml PRN PRN IV DECREASED GLUCOSE; Start 04/12/17 at 22:30 Nitroglycerin (Nitroglycerin (Sl Tab) 0.4 Mg) 1 tab Q5M PRN SL ANGINA; Start at 22:30 Pantoprazole (Protonix Tab) 40 mg DAILY@06 PO Last administered on 04/20/17 06 :24; Admin Dose 40 MG; Start 04/13/17 at 06:00 Amlodipine Besylate (Norvasc) 10 mg DAILY PO Last administered on 04/20/17 08: 57; Admin Dose 10 MG; Start 04/13/17 at 09:00 Aspirin (Ecotrin) 325 mg DAILY PO Last administered on 04/20/17 08:54; Admin Dose 325 MG; Start 04/13/17 at 09:00 Atorvastatin Calcium (Lipitor) 80 mg HS PO Last administered on 04/19/17 21:34 ; Admin Dose 80 MG; Start 04/13/17 at 21:00 Enoxaparin Sodium (Lovenox) 40 mg DAILY SC Last administered on 04/20/17 09:04 ; Admin Dose 40 MG; Start 04/13/17 at 09:00 Diagnostic Test (Pha) (Accu-Chek) 1 ea 02 XX Last administered on 04/19/17 02: 00; Admin Dose 1 EA; Start 04/13/17 at 02:00 Docusate Sodium (Colace) 100 mg BID PO Last administered on 04/20/17 08:57; Admin Dose 100 MG; Start 04/13/17 at 09:00 Senna (Senokot) 1 tab HS PO Last administered on 04/18/17 21:09; Admin Dose 1 TAB; Start 04/13/17 at 21:00 Bisacodyl (Dulcolax Supp) 10 mg Q24H PRN [place] CONSTIPATION; Start 04/13/17 at 08: 30 Magnesium Hydroxide (Milk Of Mag) 30 ml Q12H PRN PO CONSTIPATION; Start at 08:30 Lactulose (Enulose) 20 gm Q24H PRN PO CONSTIPATION Last administered on 09:08; Admin Dose 20 GM; Start 04/13/17 at 08:30 Miscellaneous Information 1 ea NOTE XX ; Start 04/13/17 at 18:00 Glucose (Glutose) 15 gm Q15M PRN PO DECREASED GLUCOSE; Start 04/13/17 at 18:00 Glucose (Glutose) 22.5 gm Q15M PRN PO DECREASED GLUCOSE; Start 04/13/17 at 18: 00 Dextrose (D50w Syringe) 25 ml Q15M PRN IV DECREASED GLUCOSE; Start 04/13/17 at 18:00 Dextrose (D50w Syringe) 50 ml Q15M PRN IV DECREASED GLUCOSE; Start 04/13/17 at 18:00 Glucagon (Glucagen) 1 mg Q15M PRN IM DECREASED GLUCOSE; Start 04/13/17 at 18:00 Glucose (Glutose) 15 gm Q15M PRN BUCCAL DECREASED GLUCOSE; Start 04/13/17 at 18 :00 Insulin Glargine (Lantus) 30 unit QHS SC Last administered on 04/19/17 21:44; Admin Dose 30 UNIT; Start 04/14/17 at 21:00 Linagliptin (Tradjenta) 5 mg DAILY PO Last administered on 04/20/17 08:54; Admin Dose 5 MG; Start 04/14/17 at 12:00 Losartan Potassium (Cozaar) 50 mg BID PO Last administered on 04/20/17 08:57; Admin Dose 50 MG; Start 04/15/17 at 21:00 Assessment/Plan Additional Assessment/Plan Rehabilitation- 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 Continue diabetic education hypertension hyperlipidemia history of CVA with good functional recovery EVANGELINA RAMIREZ MD Apr 20, 2017 11:26
[2017-04-20 19:40] VITALS: BP 128/72; RESP 18
[2017-04-20] MEDS: SENNA TAB PO SCH (21:00)
[2017-04-20] MEDS: ATORVASTATIN 80 MG TAB PO SCH (21:27)
[2017-04-20] MEDS: INSULIN GLARGINE [LANtus] 3 ML PEN SC SCH (21:36)
--- NOTE | 2017-04-20 22:44 | PN ---
Date/Time of Note Date/Time of Note DATE: 04/20/17 TIME: 22:43 Assessment/Plan VTE Prophylaxis VTE Prophylaxis Intervention: other Lines/Catheters IV Catheter Type (from Nrs): Saline Lock Urinary Cath still in place: No Assessment/Plan Chief Complaint/Hosp Course DM CKD ASHD CVA PLAN PT OT SS INSULIN stable Problems: Subjective 24 Hr Interval Summary Cardiovascular: no complaints Gastrointestinal: no complaints Exam/Review of Systems Vital Signs Vitals Vital Signs Date Time Temp Pulse Resp B/P Pulse Ox O2 Delivery O2 Flow Rate FiO2 04/20/17 19:40 98.9 73 18 128/72 93 04/17/17 20:00 Room Air Intake and Output 04/19/17 04/19/17 04/20/17 15:00 23:00 07:00 Intake Total 840 ml 600 ml 250 ml Output Total 650 ml 400 ml 650 ml Balance 190 ml 200 ml -400 ml Exam Neck: supple Respiratory: clear to auscultation Cardiovascular: regular rate and rhythm Gastrointestinal: soft Results Results 24 hrs Laboratory Tests Test 04/20/17 02:00 04/20/17 08:03 04/20/17 12:16 04/20/17 17:38 Bedside Glucose 274 H 196 261 H 229 H Test 04/20/17 21:33 Bedside Glucose 153 Medications Medications Current Medications Acetaminophen (Tylenol Tab) 650 mg Q4H PRN PO PAIN AND OR ELEVATED TEMP; Start 04/12/17 at 22:30 Glucose (Glutose) 31 gm PRN PRN PO DECREASED GLUCOSE; Start 04/12/17 at 22:30 Dextrose (D50w Syringe) 50 ml PRN PRN IV DECREASED GLUCOSE; Start 04/12/17 at 22:30 Nitroglycerin (Nitroglycerin (Sl Tab) 0.4 Mg) 1 tab Q5M PRN SL ANGINA; Start at 22:30 Pantoprazole (Protonix Tab) 40 mg DAILY@06 PO Last administered on 04/20/17 06 :24; Admin Dose 40 MG; Start 04/13/17 at 06:00 Amlodipine Besylate (Norvasc) 10 mg DAILY PO Last administered on 04/20/17 08: 57; Admin Dose 10 MG; Start 04/13/17 at 09:00 Aspirin (Ecotrin) 325 mg DAILY PO Last administered on 04/20/17 08:54; Admin Dose 325 MG; Start 04/13/17 at 09:00 Atorvastatin Calcium (Lipitor) 80 mg HS PO Last administered on 04/20/17 21:27 ; Admin Dose 80 MG; Start 04/13/17 at 21:00 Enoxaparin Sodium (Lovenox) 40 mg DAILY SC Last administered on 04/20/17 09:04 ; Admin Dose 40 MG; Start 04/13/17 at 09:00 Diagnostic Test (Pha) (Accu-Chek) 1 ea 02 XX Last administered on 04/19/17 02: 00; Admin Dose 1 EA; Start 04/13/17 at 02:00 Docusate Sodium (Colace) 100 mg BID PO Last administered on 04/20/17 21:27; Admin Dose 100 MG; Start 04/13/17 at 09:00 Senna (Senokot) 1 tab HS PO Last administered on 04/18/17 21:09; Admin Dose 1 TAB; Start 04/13/17 at 21:00 Bisacodyl (Dulcolax Supp) 10 mg Q24H PRN [place] CONSTIPATION; Start 04/13/17 at 08: 30 Magnesium Hydroxide (Milk Of Mag) 30 ml Q12H PRN PO CONSTIPATION; Start at 08:30 Lactulose (Enulose) 20 gm Q24H PRN PO CONSTIPATION Last administered on 09:08; Admin Dose 20 GM; Start 04/13/17 at 08:30 Miscellaneous Information 1 ea NOTE XX ; Start 04/13/17 at 18:00 Glucose (Glutose) 15 gm Q15M PRN PO DECREASED GLUCOSE; Start 04/13/17 at 18:00 Glucose (Glutose) 22.5 gm Q15M PRN PO DECREASED GLUCOSE; Start 04/13/17 at 18: 00 Dextrose (D50w Syringe) 25 ml Q15M PRN IV DECREASED GLUCOSE; Start 04/13/17 at 18:00 Dextrose (D50w Syringe) 50 ml Q15M PRN IV DECREASED GLUCOSE; Start 04/13/17 at 18:00 Glucagon (Glucagen) 1 mg Q15M PRN IM DECREASED GLUCOSE; Start 04/13/17 at 18:00 Glucose (Glutose) 15 gm Q15M PRN BUCCAL DECREASED GLUCOSE; Start 04/13/17 at 18 :00 Insulin Glargine (Lantus) 30 unit QHS SC Last administered on 04/20/17 21:36; Admin Dose 30 UNIT; Start 04/14/17 at 21:00 Linagliptin (Tradjenta) 5 mg DAILY PO Last administered on 04/20/17 08:54; Admin Dose 5 MG; Start 04/14/17 at 12:00 Losartan Potassium (Cozaar) 50 mg BID PO Last administered on 04/20/17 21:28; Admin Dose 50 MG; Start 04/15/17 at 21:00 NOE MENDOZA MD Apr 20, 2017 22:44
[2017-04-21 01:59] VITALS: BP 136/75; RESP 19
[2017-04-21] MEDS: ACCUCHECK AT 2AM (Patients on SS coverage) XX SCH (02:00)
[2017-04-21] MEDS: PANTOPRAZOLE (EC) 40 MG TAB PO SCH (06:44)
[2017-04-21 07:30] VITALS: BP 137/84; RESP 20
[2017-04-21 07:50] LABS: ALBUMIN 3.5 g/dl (3.3-4.9); ALBUMIN/GLOBULIN RATIO 1.16; BILIRUBIN,INDIRECT 0.4 mg/dl (0-1.1); BILIRUBIN,TOTAL 0.4 mg/dl (0.2-1.3); CALCIUM 9.3 mg/dl (8.4-10.2); CREATININE 0.65 mg/dl (0.61-1.24); POTASSIUM 3.9 mmol/L (3.5-5.1); TOTAL PROTEIN 6.5 g/dl (6.1-8.1)
[2017-04-21] MEDS: INSULIN ASPART [NOVOLOG] 3 ML PEN SC SCH ×3 (08:03→17:23)
[2017-04-21] MEDS: Insulin NOVOLOG SS MODERATE Algorithm (SS with meals and bedtime) SC SCH ×4 (08:06→21:20)
[2017-04-21] MEDS: AMLODIPINE 10 MG TAB PO SCH (08:38)
[2017-04-21] MEDS: AL HYDROX/MG HYDROX/SIMETH 30 ML CUP PO SCH ×4 (08:38→20:47)
[2017-04-21] MEDS: ASPIRIN (EC) 325 MG TAB PO SCH (08:38)
[2017-04-21] MEDS: DOCUSATE SODIUM 100 MG CAP PO SCH ×2 (08:39→20:48)
[2017-04-21] MEDS: LINAGLIPTIN 5 MG TABLET PO SCH (08:39)
[2017-04-21] MEDS: ENOXAPARIN 40 MG/0.4 ML SYG SC SCH (08:40)
[2017-04-21] MEDS: LOSARTAN 50 MG TAB PO SCH ×2 (08:42→20:48)
--- NOTE | 2017-04-21 10:56 | PN ---
Date/Time of Note Date/Time of Note DATE: 04/21/17 TIME: 10:55 Assessment/Plan VTE Prophylaxis VTE Prophylaxis Intervention: ambulation Lines/Catheters IV Catheter Type (from Nrs): Saline Lock Urinary Cath still in place: No Assessment/Plan Chief Complaint/Hosp Course 1. uncontrolled diabetes mellitus type 2 2. hypertension, controlled 3. hyperlipidemia 4. history of CVA with left sided hemiparesis 5.Obesity Problems: Subjective 24 Hr Interval Summary Constitutional: improved, no complaints Exam/Review of Systems Vital Signs Vitals Vital Signs Date Time Temp Pulse Resp B/P Pulse Ox O2 Delivery O2 Flow Rate FiO2 04/21/17 07:30 99.6 76 20 137/84 93 04/17/17 20:00 Room Air Intake and Output 04/20/17 04/20/17 04/21/17 15:00 23:00 07:00 Intake Total 300 ml 860 ml 300 ml Output Total 450 ml 750 ml Balance 300 ml 410 ml -450 ml Exam Constitutional: alert, oriented Neck: supple Respiratory: clear to auscultation Musculoskeletal: muscle weakness (left side of the body) Results Result Diagram: 04/21/17 0642 Results 24 hrs Laboratory Tests Test 04/20/17 12:16 04/20/17 17:38 04/20/17 21:33 04/21/17 06:42 Bedside Glucose 261 H 229 H 153 Sodium Level 142 Potassium Level 3.9 Chloride Level 100 Carbon Dioxide Level 28 Anion Gap 18 H Blood Urea Nitrogen 18 Creatinine 0.65 Glucose Level 199 Calcium Level 9.3 Total Bilirubin 0.4 Direct Bilirubin 0.00 Indirect Bilirubin 0.4 Aspartate Amino Transf (AST/SGOT) 39 Alanine Aminotransferase (ALT/SGPT) 66 Alkaline Phosphatase 71 Total Protein 6.5 Albumin 3.5 Globulin 3.00 Albumin/Globulin Ratio 1.16 Test 04/21/17 07:59 Bedside Glucose 182 Medications Medications Current Medications Acetaminophen (Tylenol Tab) 650 mg Q4H PRN PO PAIN AND OR ELEVATED TEMP; Start 04/12/17 at 22:30 Glucose (Glutose) 31 gm PRN PRN PO DECREASED GLUCOSE; Start 04/12/17 at 22:30 Dextrose (D50w Syringe) 50 ml PRN PRN IV DECREASED GLUCOSE; Start 04/12/17 at 22:30 Nitroglycerin (Nitroglycerin (Sl Tab) 0.4 Mg) 1 tab Q5M PRN SL ANGINA; Start at 22:30 Pantoprazole (Protonix Tab) 40 mg DAILY@06 PO Last administered on 04/21/17 06 :44; Admin Dose 40 MG; Start 04/13/17 at 06:00 Amlodipine Besylate (Norvasc) 10 mg DAILY PO Last administered on 04/21/17 08: 38; Admin Dose 10 MG; Start 04/13/17 at 09:00 Aspirin (Ecotrin) 325 mg DAILY PO Last administered on 04/21/17 08:38; Admin Dose 325 MG; Start 04/13/17 at 09:00 Atorvastatin Calcium (Lipitor) 80 mg HS PO Last administered on 04/20/17 21:27 ; Admin Dose 80 MG; Start 04/13/17 at 21:00 Enoxaparin Sodium (Lovenox) 40 mg DAILY SC Last administered on 04/21/17 08:40 ; Admin Dose 40 MG; Start 04/13/17 at 09:00 Diagnostic Test (Pha) (Accu-Chek) 1 ea 02 XX Last administered on 04/19/17 02: 00; Admin Dose 1 EA; Start 04/13/17 at 02:00 Docusate Sodium (Colace) 100 mg BID PO Last administered on 04/21/17 08:39; Admin Dose 100 MG; Start 04/13/17 at 09:00 Senna (Senokot) 1 tab HS PO Last administered on 04/18/17 21:09; Admin Dose 1 TAB; Start 04/13/17 at 21:00 Bisacodyl (Dulcolax Supp) 10 mg Q24H PRN [place] CONSTIPATION; Start 04/13/17 at 08: 30 Magnesium Hydroxide (Milk Of Mag) 30 ml Q12H PRN PO CONSTIPATION; Start at 08:30 Lactulose (Enulose) 20 gm Q24H PRN PO CONSTIPATION Last administered on 09:08; Admin Dose 20 GM; Start 04/13/17 at 08:30 Miscellaneous Information 1 ea NOTE XX ; Start 04/13/17 at 18:00 Glucose (Glutose) 15 gm Q15M PRN PO DECREASED GLUCOSE; Start 04/13/17 at 18:00 Glucose (Glutose) 22.5 gm Q15M PRN PO DECREASED GLUCOSE; Start 04/13/17 at 18: 00 Dextrose (D50w Syringe) 25 ml Q15M PRN IV DECREASED GLUCOSE; Start 04/13/17 at 18:00 Dextrose (D50w Syringe) 50 ml Q15M PRN IV DECREASED GLUCOSE; Start 04/13/17 at 18:00 Glucagon (Glucagen) 1 mg Q15M PRN IM DECREASED GLUCOSE; Start 04/13/17 at 18:00 Glucose (Glutose) 15 gm Q15M PRN BUCCAL DECREASED GLUCOSE; Start 04/13/17 at 18 :00 Insulin Glargine (Lantus) 30 unit QHS SC Last administered on 04/20/17 21:36; Admin Dose 30 UNIT; Start 04/14/17 at 21:00 Linagliptin (Tradjenta) 5 mg DAILY PO Last administered on 04/21/17 08:39; Admin Dose 5 MG; Start 04/14/17 at 12:00 Losartan Potassium (Cozaar) 50 mg BID PO Last administered on 04/21/17 08:42; Admin Dose 50 MG; Start 04/15/17 at 21:00 EMILY BRADFORD Apr 21, 2017 10:56
--- NOTE | 2017-04-21 12:55 | CONS ---
Date/Time of Note Date/Time of Note DATE: 04/21/17 TIME: 12:54 Consult Date/Type/Reason Admit Date/Time Apr 12, 2017 at 21:24 Type of Consultation: Rehabilitation Subjective In good spirits Objective Lungs clear anteriorly Abdomen soft Contact-guard assist ambulate Vital Signs Date Time Temp Pulse Resp B/P Pulse Ox O2 Delivery O2 Flow Rate FiO2 04/21/17 07:30 99.6 76 20 137/84 93 04/17/17 20:00 Room Air Intake and Output 04/20/17 04/20/17 04/21/17 15:00 23:00 07:00 Intake Total 300 ml 860 ml 300 ml Output Total 450 ml 750 ml Balance 300 ml 410 ml -450 ml Results/Medications Result Diagram: 04/21/17 0642 Results 24 hrs Laboratory Tests Test 04/20/17 17:38 04/20/17 21:33 04/21/17 06:42 04/21/17 07:59 Bedside Glucose 229 H 153 182 Sodium Level 142 Potassium Level 3.9 Chloride Level 100 Carbon Dioxide Level 28 Anion Gap 18 H Blood Urea Nitrogen 18 Creatinine 0.65 Glucose Level 199 Calcium Level 9.3 Total Bilirubin 0.4 Direct Bilirubin 0.00 Indirect Bilirubin 0.4 Aspartate Amino Transf (AST/SGOT) 39 Alanine Aminotransferase (ALT/SGPT) 66 Alkaline Phosphatase 71 Total Protein 6.5 Albumin 3.5 Globulin 3.00 Albumin/Globulin Ratio 1.16 Test 04/21/17 12:19 Bedside Glucose 156 Medications Current Medications Acetaminophen (Tylenol Tab) 650 mg Q4H PRN PO PAIN AND OR ELEVATED TEMP; Start 04/12/17 at 22:30 Glucose (Glutose) 31 gm PRN PRN PO DECREASED GLUCOSE; Start 04/12/17 at 22:30 Dextrose (D50w Syringe) 50 ml PRN PRN IV DECREASED GLUCOSE; Start 04/12/17 at 22:30 Nitroglycerin (Nitroglycerin (Sl Tab) 0.4 Mg) 1 tab Q5M PRN SL ANGINA; Start at 22:30 Pantoprazole (Protonix Tab) 40 mg DAILY@06 PO Last administered on 04/21/17 06 :44; Admin Dose 40 MG; Start 04/13/17 at 06:00 Amlodipine Besylate (Norvasc) 10 mg DAILY PO Last administered on 04/21/17 08: 38; Admin Dose 10 MG; Start 04/13/17 at 09:00 Aspirin (Ecotrin) 325 mg DAILY PO Last administered on 04/21/17 08:38; Admin Dose 325 MG; Start 04/13/17 at 09:00 Atorvastatin Calcium (Lipitor) 80 mg HS PO Last administered on 04/20/17 21:27 ; Admin Dose 80 MG; Start 04/13/17 at 21:00 Enoxaparin Sodium (Lovenox) 40 mg DAILY SC Last administered on 04/21/17 08:40 ; Admin Dose 40 MG; Start 04/13/17 at 09:00 Diagnostic Test (Pha) (Accu-Chek) 1 ea 02 XX Last administered on 04/19/17 02: 00; Admin Dose 1 EA; Start 04/13/17 at 02:00 Docusate Sodium (Colace) 100 mg BID PO Last administered on 04/21/17 08:39; Admin Dose 100 MG; Start 04/13/17 at 09:00 Senna (Senokot) 1 tab HS PO Last administered on 04/18/17 21:09; Admin Dose 1 TAB; Start 04/13/17 at 21:00 Bisacodyl (Dulcolax Supp) 10 mg Q24H PRN [place] CONSTIPATION; Start 04/13/17 at 08: 30 Magnesium Hydroxide (Milk Of Mag) 30 ml Q12H PRN PO CONSTIPATION; Start at 08:30 Lactulose (Enulose) 20 gm Q24H PRN PO CONSTIPATION Last administered on 09:08; Admin Dose 20 GM; Start 04/13/17 at 08:30 Miscellaneous Information 1 ea NOTE XX ; Start 04/13/17 at 18:00 Glucose (Glutose) 15 gm Q15M PRN PO DECREASED GLUCOSE; Start 04/13/17 at 18:00 Glucose (Glutose) 22.5 gm Q15M PRN PO DECREASED GLUCOSE; Start 04/13/17 at 18: 00 Dextrose (D50w Syringe) 25 ml Q15M PRN IV DECREASED GLUCOSE; Start 04/13/17 at 18:00 Dextrose (D50w Syringe) 50 ml Q15M PRN IV DECREASED GLUCOSE; Start 04/13/17 at 18:00 Glucagon (Glucagen) 1 mg Q15M PRN IM DECREASED GLUCOSE; Start 04/13/17 at 18:00 Glucose (Glutose) 15 gm Q15M PRN BUCCAL DECREASED GLUCOSE; Start 04/13/17 at 18 :00 Linagliptin (Tradjenta) 5 mg DAILY PO Last administered on 04/21/17 08:39; Admin Dose 5 MG; Start 04/14/17 at 12:00 Losartan Potassium (Cozaar) 50 mg BID PO Last administered on 04/21/17 08:42; Admin Dose 50 MG; Start 04/15/17 at 21:00 Insulin Glargine (Lantus) 35 unit QHS SC ; Start 04/21/17 at 21:00 Assessment/Plan Additional Assessment/Plan Rehabilitation- 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 uncontrolled diabetes mellitus type 2-patient with newly diagnosed diabetes. Continue diabetic education hypertension hyperlipidemia history of CVA with good functional recovery EVANGELINA RAMIREZ MD Apr 21, 2017 12:55
[2017-04-21 14:00] VITALS: BP 127/73; RESP 20
[2017-04-21 19:57] VITALS: BP 133/70; RESP 18
[2017-04-21] MEDS: SENNA TAB PO SCH (20:48)
[2017-04-21] MEDS: ATORVASTATIN 80 MG TAB PO SCH (20:48)
[2017-04-21] MEDS: INSULIN GLARGINE [LANtus] 3 ML PEN SC SCH (21:19)
[2017-04-22 02:00] VITALS: BP 128/71; RESP 18
[2017-04-22] MEDS: ACCUCHECK AT 2AM (Patients on SS coverage) XX SCH (02:00)
[2017-04-22] MEDS: PANTOPRAZOLE (EC) 40 MG TAB PO SCH (06:01)
[2017-04-22 07:43] VITALS: BP 153/82; RESP 18
[2017-04-22] MEDS: LINAGLIPTIN 5 MG TABLET PO SCH (08:02)
[2017-04-22] MEDS: LOSARTAN 50 MG TAB PO SCH ×2 (08:02→20:21)
[2017-04-22] MEDS: ASPIRIN (EC) 325 MG TAB PO SCH (08:02)
[2017-04-22] MEDS: DOCUSATE SODIUM 100 MG CAP PO SCH ×2 (08:02→20:21)
[2017-04-22] MEDS: AL HYDROX/MG HYDROX/SIMETH 30 ML CUP PO SCH ×4 (08:03→20:21)
[2017-04-22] MEDS: INSULIN ASPART [NOVOLOG] 3 ML PEN SC SCH ×3 (08:04→17:37)
[2017-04-22] MEDS: Insulin NOVOLOG SS MODERATE Algorithm (SS with meals and bedtime) SC SCH ×4 (08:04→20:21)
[2017-04-22] MEDS: ENOXAPARIN 40 MG/0.4 ML SYG SC SCH (08:05)
[2017-04-22] MEDS: AMLODIPINE 10 MG TAB PO SCH (08:06)
[2017-04-22 08:18] VITALS: BP 153/82; PULSE 82; RESP 16
--- NOTE | 2017-04-22 10:32 | PN ---
Date/Time of Note Date/Time of Note DATE: 04/22/17 TIME: 10:27 Assessment/Plan VTE Prophylaxis VTE Prophylaxis Intervention: LMWH Lines/Catheters IV [facility] Urinary Cath still in place: No Assessment/Plan Assessment/Plan 1. 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 Continue PT/OT/ST. Transfers improving, now SBA. Continue secondary stroke prevention per neurology. 2. Diabetes mellitus type 2. Continue medical management per internal medicine, adjusting insulin regimen. Continue to monitor blood sugars. 3. Hypertension. Continue to monitor BP. Continue medical management per internal medicine. 4.Hyperlipidemia. Continue statin. Subjective 24 Hr Interval Summary Free Text/Dictation Rehab progress note Subjective: No acute complaints. ROS: Denies chest pain, no shortness of breath, no abdominal pain, no nausea or vomiting, no chills. Exam/Review of Systems Vital Signs Vitals Vital Signs Date Time Temp Pulse Resp B/P Pulse Ox O2 Delivery O2 Flow Rate FiO2 04/22/17 08:18 98.3 82 16 153/82 97 Room Air Intake and Output 04/21/17 04/21/17 04/22/17 15:00 23:00 07:00 Intake Total 890 ml 800 ml Output Total 401 ml 100 ml Balance 489 ml 700 ml Exam General: Awake, alert, no acute distress CV: Regular rate, s1s2 Lungs: Clear to anterior auscultation, no wheezing Abdomen soft, nontender Extremities without cyanosis, no new swelling Neuro:Left sided hemiparesis. Follows simple commands. Results Result Diagram: 04/21/17 0642 Results 24 hrs Laboratory Tests Test 04/21/17 12:19 04/21/17 17:20 04/21/17 21:12 04/22/17 02:08 Bedside Glucose 156 115 182 184 Test 04/22/17 07:41 Bedside Glucose 201 Medications Medications Current Medications Acetaminophen (Tylenol Tab) 650 mg Q4H PRN PO PAIN AND OR ELEVATED TEMP; Start 04/12/17 at 22:30 Glucose (Glutose) 31 gm PRN PRN PO DECREASED GLUCOSE; Start 04/12/17 at 22:30 Dextrose (D50w Syringe) 50 ml PRN PRN IV DECREASED GLUCOSE; Start 04/12/17 at 22:30 Nitroglycerin (Nitroglycerin (Sl Tab) 0.4 Mg) 1 tab Q5M PRN SL ANGINA; Start at 22:30 Pantoprazole (Protonix Tab) 40 mg DAILY@06 PO Last administered on 04/22/17 06 :01; Admin Dose 40 MG; Start 04/13/17 at 06:00 Amlodipine Besylate (Norvasc) 10 mg DAILY PO Last administered on 04/22/17 08: 06; Admin Dose 10 MG; Start 04/13/17 at 09:00 Aspirin (Ecotrin) 325 mg DAILY PO Last administered on 04/22/17 08:02; Admin Dose 325 MG; Start 04/13/17 at 09:00 Atorvastatin Calcium (Lipitor) 80 mg HS PO Last administered on 04/21/17 20:48 ; Admin Dose 80 MG; Start 04/13/17 at 21:00 Enoxaparin Sodium (Lovenox) 40 mg DAILY SC Last administered on 04/22/17 08:05 ; Admin Dose 40 MG; Start 04/13/17 at 09:00 Diagnostic Test (Pha) (Accu-Chek) 1 ea 02 XX Last administered on 04/22/17 02: 00; Admin Dose 1 EA; Start 04/13/17 at 02:00 Docusate Sodium (Colace) 100 mg BID PO Last administered on 04/22/17 08:02; Admin Dose 100 MG; Start 04/13/17 at 09:00 Senna (Senokot) 1 tab HS PO Last administered on 04/21/17 20:48; Admin Dose 1 TAB; Start 04/13/17 at 21:00 Bisacodyl (Dulcolax Supp) 10 mg Q24H PRN [place] CONSTIPATION; Start 04/13/17 at 08: 30 Magnesium Hydroxide (Milk Of Mag) 30 ml Q12H PRN PO CONSTIPATION; Start at 08:30 Lactulose (Enulose) 20 gm Q24H PRN PO CONSTIPATION Last administered on 09:08; Admin Dose 20 GM; Start 04/13/17 at 08:30 Miscellaneous Information 1 ea NOTE XX ; Start 04/13/17 at 18:00 Glucose (Glutose) 15 gm Q15M PRN PO DECREASED GLUCOSE; Start 04/13/17 at 18:00 Glucose (Glutose) 22.5 gm Q15M PRN PO DECREASED GLUCOSE; Start 04/13/17 at 18: 00 Dextrose (D50w Syringe) 25 ml Q15M PRN IV DECREASED GLUCOSE; Start 04/13/17 at 18:00 Dextrose (D50w Syringe) 50 ml Q15M PRN IV DECREASED GLUCOSE; Start 04/13/17 at 18:00 Glucagon (Glucagen) 1 mg Q15M PRN IM DECREASED GLUCOSE; Start 04/13/17 at 18:00 Glucose (Glutose) 15 gm Q15M PRN BUCCAL DECREASED GLUCOSE; Start 04/13/17 at 18 :00 Linagliptin (Tradjenta) 5 mg DAILY PO Last administered on 04/22/17 08:02; Admin Dose 5 MG; Start 04/14/17 at 12:00 Losartan Potassium (Cozaar) 50 mg BID PO Last administered on 04/22/17 08:02; Admin Dose 50 MG; Start 04/15/17 at 21:00 Insulin Glargine (Lantus) 35 unit QHS SC Last administered on 04/21/17 21:19; Admin Dose 35 UNIT; Start 04/21/17 at 21:00 CHRIS DAN Apr 22, 2017 10:32
--- NOTE | 2017-04-22 12:37 | PN ---
Date/Time of Note Date/Time of Note DATE: 04/22/17 TIME: 12:36 Assessment/Plan VTE Prophylaxis VTE Prophylaxis Intervention: ambulation Lines/Catheters IV [facility] (from [facility] Urinary Cath still in place: No Assessment/Plan Chief Complaint/Hosp Course 1. Controlled diabetes mellitus type 2 2. hypertension, controlled 3. hyperlipidemia 4. history of CVA with left sided hemiparesis 5.Obesity Problems: Assessment/Plan 1. continue current regime Subjective 24 Hr Interval Summary Constitutional: no complaints Eyes: no complaints Musculoskeletal: restricted range of motion (left side of the body) Exam/Review of Systems Vital Signs Vitals Vital Signs Date Time Temp Pulse Resp B/P Pulse Ox O2 Delivery O2 Flow Rate FiO2 04/22/17 08:18 98.3 82 16 153/82 97 Room Air Intake and Output 04/21/17 04/21/17 04/22/17 15:00 23:00 07:00 Intake Total 890 ml 800 ml Output Total 401 ml 100 ml Balance 489 ml 700 ml Exam Constitutional: alert, oriented Psych: no complaints Head: normocephalic Eyes: nl conjunctiva Cardiovascular: regular rate and rhythm Results Result Diagram: 04/21/17 0642 Results 24 hrs Laboratory Tests Test 04/21/17 17:20 04/21/17 21:12 04/22/17 02:08 04/22/17 07:41 Bedside Glucose 115 182 184 201 Test 04/22/17 11:54 Bedside Glucose 116 Medications Medications Current Medications Acetaminophen (Tylenol Tab) 650 mg Q4H PRN PO PAIN AND OR ELEVATED TEMP; Start 04/12/17 at 22:30 Glucose (Glutose) 31 gm PRN PRN PO DECREASED GLUCOSE; Start 04/12/17 at 22:30 Dextrose (D50w Syringe) 50 ml PRN PRN IV DECREASED GLUCOSE; Start 04/12/17 at 22:30 Nitroglycerin (Nitroglycerin (Sl Tab) 0.4 Mg) 1 tab Q5M PRN SL ANGINA; Start at 22:30 Pantoprazole (Protonix Tab) 40 mg DAILY@06 PO Last administered on 04/22/17 06 :01; Admin Dose 40 MG; Start 04/13/17 at 06:00 Amlodipine Besylate (Norvasc) 10 mg DAILY PO Last administered on 04/22/17 08: 06; Admin Dose 10 MG; Start 04/13/17 at 09:00 Aspirin (Ecotrin) 325 mg DAILY PO Last administered on 04/22/17 08:02; Admin Dose 325 MG; Start 04/13/17 at 09:00 Atorvastatin Calcium (Lipitor) 80 mg HS PO Last administered on 04/21/17 20:48 ; Admin Dose 80 MG; Start 04/13/17 at 21:00 Enoxaparin Sodium (Lovenox) 40 mg DAILY SC Last administered on 04/22/17 08:05 ; Admin Dose 40 MG; Start 04/13/17 at 09:00 Diagnostic Test (Pha) (Accu-Chek) 1 ea 02 XX Last administered on 04/22/17 02: 00; Admin Dose 1 EA; Start 04/13/17 at 02:00 Docusate Sodium (Colace) 100 mg BID PO Last administered on 04/22/17 08:02; Admin Dose 100 MG; Start 04/13/17 at 09:00 Senna (Senokot) 1 tab HS PO Last administered on 04/21/17 20:48; Admin Dose 1 TAB; Start 04/13/17 at 21:00 Bisacodyl (Dulcolax Supp) 10 mg Q24H PRN [place] CONSTIPATION; Start 04/13/17 at 08: 30 Magnesium Hydroxide (Milk Of Mag) 30 ml Q12H PRN PO CONSTIPATION; Start at 08:30 Lactulose (Enulose) 20 gm Q24H PRN PO CONSTIPATION Last administered on 09:08; Admin Dose 20 GM; Start 04/13/17 at 08:30 Miscellaneous Information 1 ea NOTE XX ; Start 04/13/17 at 18:00 Glucose (Glutose) 15 gm Q15M PRN PO DECREASED GLUCOSE; Start 04/13/17 at 18:00 Glucose (Glutose) 22.5 gm Q15M PRN PO DECREASED GLUCOSE; Start 04/13/17 at 18: 00 Dextrose (D50w Syringe) 25 ml Q15M PRN IV DECREASED GLUCOSE; Start 04/13/17 at 18:00 Dextrose (D50w Syringe) 50 ml Q15M PRN IV DECREASED GLUCOSE; Start 04/13/17 at 18:00 Glucagon (Glucagen) 1 mg Q15M PRN IM DECREASED GLUCOSE; Start 04/13/17 at 18:00 Glucose (Glutose) 15 gm Q15M PRN BUCCAL DECREASED GLUCOSE; Start 04/13/17 at 18 :00 Linagliptin (Tradjenta) 5 mg DAILY PO Last administered on 04/22/17 08:02; Admin Dose 5 MG; Start 04/14/17 at 12:00 Losartan Potassium (Cozaar) 50 mg BID PO Last administered on 04/22/17 08:02; Admin Dose 50 MG; Start 04/15/17 at 21:00 Insulin Glargine (Lantus) 35 unit QHS SC Last administered on 04/21/17 21:19; Admin Dose 35 UNIT; Start 04/21/17 at 21:00 EMILY BRADFORD Apr 22, 2017 12:37
[2017-04-22 14:00] VITALS: BP 105/65; RESP 18
[2017-04-22] MEDS: ATORVASTATIN 80 MG TAB PO SCH (20:21)
[2017-04-22] MEDS: SENNA TAB PO SCH (20:21)
[2017-04-22 20:24] VITALS: BP 127/86; RESP 19
[2017-04-22] MEDS: INSULIN GLARGINE [LANtus] 3 ML PEN SC SCH (20:26)
[2017-04-23] MEDS: ACCUCHECK AT 2AM (Patients on SS coverage) XX SCH (02:00)
[2017-04-23] MEDS: PANTOPRAZOLE (EC) 40 MG TAB PO SCH (06:29)
[2017-04-23] MEDS: AL HYDROX/MG HYDROX/SIMETH 30 ML CUP PO SCH ×4 (06:29→20:19)
[2017-04-23 06:44] LABS: BASOPHIL # 0.1 10^3/ul (0.0-0.1); BASOPHILS % 0.9 % (0.0-2.0); EOSINOPHILS # 0.3 10^3/ul (0.0-0.5); HEMATOCRIT 43.1 % (42.0-52.0); HEMOGLOBIN 14.5 g/dl (14.0-18.0); LYMPHOCYTES # 1.8 10^3/ul (0.8-2.9); LYMPHOCYTES % 21.9 % (15.0-51.0); MEAN CORPUSCULAR HEMOGLOBIN 30.8 pg (29.0-33.0); MEAN CORPUSCULAR HGB CONC 33.6 g/dl (32.0-37.0); MEAN CORPUSCULAR VOLUME 91.5 fl (82.0-101.0); MEAN PLATELET VOLUME 12.5 fl (7.4-10.4); MONOCYTE # 0.8 10^3/ul (0.3-0.9); MONOCYTES % 9.3 % (0.0-11.0); NEUTROPHIL # 5.2 10^3/ul (1.6-7.5); NEUTROPHILS % 63.5 % (39.0-77.0); PLATELET COUNT 247 10^3/UL (140-415); RED BLOOD COUNT 4.71 10^6/ul (4.70-6.10); RED CELL DISTRIBUTION WIDTH 12.3 % (11.5-14.5); WHITE BLOOD COUNT 8.2 10^3/ul (4.8-10.8)
[2017-04-23] MEDS: Insulin NOVOLOG SS MODERATE Algorithm (SS with meals and bedtime) SC SCH ×4 (07:35→20:26)
[2017-04-23 07:53] VITALS: BP 144/91; PULSE 94; RESP 16
[2017-04-23] MEDS: ASPIRIN (EC) 325 MG TAB PO SCH (08:02)
[2017-04-23] MEDS: LINAGLIPTIN 5 MG TABLET PO SCH (08:02)
[2017-04-23] MEDS: LOSARTAN 50 MG TAB PO SCH ×2 (08:02→20:20)
[2017-04-23] MEDS: AMLODIPINE 10 MG TAB PO SCH (08:03)
[2017-04-23] MEDS: DOCUSATE SODIUM 100 MG CAP PO SCH ×2 (08:03→20:19)
[2017-04-23] MEDS: ENOXAPARIN 40 MG/0.4 ML SYG SC SCH (08:04)
[2017-04-23] MEDS: INSULIN ASPART [NOVOLOG] 3 ML PEN SC SCH ×3 (08:05→17:23)
--- NOTE | 2017-04-23 12:50 | PN ---
Date/Time of Note Date/Time of Note DATE: 04/23/17 TIME: 12:49 Assessment/Plan VTE Prophylaxis VTE Prophylaxis Intervention: ambulation Lines/Catheters IV [facility] Type (from [facility] Saline Lock Urinary Cath still in place: No Assessment/Plan Chief Complaint/Hosp Course 1. Controlled diabetes mellitus type 2 2. hypertension, controlled 3. hyperlipidemia, controlled 4. history of CVA with left sided hemiparesis 5.Obesity Problems: Assessment/Plan 1. Discharge pending Subjective 24 Hr Interval Summary Constitutional: improved, no complaints Exam/Review of Systems Vital Signs Vitals Vital Signs Date Time Temp Pulse Resp B/P Pulse Ox O2 Delivery O2 Flow Rate FiO2 04/23/17 07:53 97.3 94 16 144/91 94 Room Air Intake and Output 04/22/17 04/22/17 04/23/17 15:00 23:00 07:00 Intake Total 1150 ml 400 ml 680 ml Output Total 1200 ml 900 ml Balance -50 ml 400 ml -220 ml Exam Constitutional: alert, oriented ENMT: nl external ears & nose Neck: supple Respiratory: clear to auscultation Cardiovascular: regular rate and rhythm Musculoskeletal: muscle weakness (left side of the body improved) Results Result Diagram: 04/23/17 0534 04/21/17 0642 Results 24 hrs Laboratory Tests Test 04/22/17 17:17 04/22/17 20:19 04/23/17 05:34 04/23/17 07:35 Bedside Glucose 157 153 132 White Blood Count 8.2 Red Blood Count 4.71 Hemoglobin 14.5 Hematocrit 43.1 Mean Corpuscular Volume 91.5 Mean Corpuscular Hemoglobin 30.8 Mean Corpuscular Hemoglobin Concent 33.6 Red Cell Distribution Width 12.3 Platelet Count 247 # Mean Platelet Volume 12.5 H Neutrophils % 63.5 Lymphocytes % 21.9 Monocytes % 9.3 Eosinophils % 4.0 Basophils % 0.9 Nucleated Red Blood Cells % 0.0 Neutrophils # 5.2 Lymphocytes # 1.8 Monocytes # 0.8 Eosinophils # 0.3 Basophils # 0.1 Nucleated Red Blood Cells # 0.0 Test 04/23/17 11:48 Bedside Glucose 152 Medications Medications Current Medications Acetaminophen (Tylenol Tab) 650 mg Q4H PRN PO PAIN AND OR ELEVATED TEMP; Start 04/12/17 at 22:30 Glucose (Glutose) 31 gm PRN PRN PO DECREASED GLUCOSE; Start 04/12/17 at 22:30 Dextrose (D50w Syringe) 50 ml PRN PRN IV DECREASED GLUCOSE; Start 04/12/17 at 22:30 Nitroglycerin (Nitroglycerin (Sl Tab) 0.4 Mg) 1 tab Q5M PRN SL ANGINA; Start at 22:30 Pantoprazole (Protonix Tab) 40 mg DAILY@06 PO Last administered on 04/23/17 06 :29; Admin Dose 40 MG; Start 04/13/17 at 06:00 Amlodipine Besylate (Norvasc) 10 mg DAILY PO Last administered on 04/23/17 08: 03; Admin Dose 10 MG; Start 04/13/17 at 09:00 Aspirin (Ecotrin) 325 mg DAILY PO Last administered on 04/23/17 08:02; Admin Dose 325 MG; Start 04/13/17 at 09:00 Atorvastatin Calcium (Lipitor) 80 mg HS PO Last administered on 04/22/17 20:21 ; Admin Dose 80 MG; Start 04/13/17 at 21:00 Enoxaparin Sodium (Lovenox) 40 mg DAILY SC Last administered on 04/23/17 08:04 ; Admin Dose 40 MG; Start 04/13/17 at 09:00 Diagnostic Test (Pha) (Accu-Chek) 1 ea 02 XX Last administered on 04/22/17 02: 00; Admin Dose 1 EA; Start 04/13/17 at 02:00 Docusate Sodium (Colace) 100 mg BID PO Last administered on 04/22/17 20:21; Admin Dose 100 MG; Start 04/13/17 at 09:00 Senna (Senokot) 1 tab HS PO Last administered on 04/22/17 20:21; Admin Dose 1 TAB; Start 04/13/17 at 21:00 Bisacodyl (Dulcolax Supp) 10 mg Q24H PRN [place] CONSTIPATION; Start 04/13/17 at 08: 30 Magnesium Hydroxide (Milk Of Mag) 30 ml Q12H PRN PO CONSTIPATION; Start at 08:30 Lactulose (Enulose) 20 gm Q24H PRN PO CONSTIPATION Last administered on 09:08; Admin Dose 20 GM; Start 04/13/17 at 08:30 Miscellaneous Information 1 ea NOTE XX ; Start 04/13/17 at 18:00 Glucose (Glutose) 15 gm Q15M PRN PO DECREASED GLUCOSE; Start 04/13/17 at 18:00 Glucose (Glutose) 22.5 gm Q15M PRN PO DECREASED GLUCOSE; Start 04/13/17 at 18: 00 Dextrose (D50w Syringe) 25 ml Q15M PRN IV DECREASED GLUCOSE; Start 04/13/17 at 18:00 Dextrose (D50w Syringe) 50 ml Q15M PRN IV DECREASED GLUCOSE; Start 04/13/17 at 18:00 Glucagon (Glucagen) 1 mg Q15M PRN IM DECREASED GLUCOSE; Start 04/13/17 at 18:00 Glucose (Glutose) 15 gm Q15M PRN BUCCAL DECREASED GLUCOSE; Start 04/13/17 at 18 :00 Linagliptin (Tradjenta) 5 mg DAILY PO Last administered on 04/23/17 08:02; Admin Dose 5 MG; Start 04/14/17 at 12:00 Losartan Potassium (Cozaar) 50 mg BID PO Last administered on 04/23/17 08:02; Admin Dose 50 MG; Start 04/15/17 at 21:00 Insulin Glargine (Lantus) 35 unit QHS SC Last administered on 04/22/17 20:26; Admin Dose 35 UNIT; Start 04/21/17 at 21:00 EMILY BRADFORD Apr 23, 2017 12:50
[2017-04-23 20:00] VITALS: BP 128/74; RESP 18
[2017-04-23] MEDS: ATORVASTATIN 80 MG TAB PO SCH (20:19)
[2017-04-23] MEDS: SENNA TAB PO SCH (20:20)
[2017-04-23] MEDS: INSULIN GLARGINE [LANtus] 3 ML PEN SC SCH (20:26)
[2017-04-24 02:00] VITALS: BP 128/78; RESP 18
[2017-04-24] MEDS: ACCUCHECK AT 2AM (Patients on SS coverage) XX SCH (02:00)
[2017-04-24] MEDS: PANTOPRAZOLE (EC) 40 MG TAB PO SCH (06:46)
[2017-04-24 07:47] VITALS: BP 157/77; RESP 18
[2017-04-24] MEDS: AL HYDROX/MG HYDROX/SIMETH 30 ML CUP PO SCH ×4 (08:03→20:30)
[2017-04-24] MEDS: INSULIN ASPART [NOVOLOG] 3 ML PEN SC SCH ×3 (08:06→17:25)
[2017-04-24] MEDS: Insulin NOVOLOG SS MODERATE Algorithm (SS with meals and bedtime) SC SCH ×4 (08:08→20:31)
[2017-04-24] MEDS: ENOXAPARIN 40 MG/0.4 ML SYG SC SCH (08:24)
[2017-04-24] MEDS: LINAGLIPTIN 5 MG TABLET PO SCH (08:24)
[2017-04-24] MEDS: ASPIRIN (EC) 325 MG TAB PO SCH (08:24)
[2017-04-24] MEDS: DOCUSATE SODIUM 100 MG CAP PO SCH ×2 (08:24→20:31)
[2017-04-24] MEDS: AMLODIPINE 10 MG TAB PO SCH (08:27)
[2017-04-24] MEDS: LOSARTAN 50 MG TAB PO SCH ×2 (08:29→20:31)
[2017-04-24 14:00] VITALS: BP 113/73; RESP 18
--- NOTE | 2017-04-24 14:03 | CONS ---
Date/Time of Note Date/Time of Note DATE: 04/24/17 TIME: 14:01 Consult Date/Type/Reason Admit Date/Time Apr 12, 2017 at 21:24 Type of Consultation: Rehabilitation Objective Vital Signs Date Time Temp Pulse Resp B/P Pulse Ox O2 Delivery O2 Flow Rate FiO2 04/24/17 07:47 98.2 80 18 157/77 97 04/23/17 07:53 Room Air Intake and Output 04/23/17 04/23/17 04/24/17 14:59 22:59 06:59 Intake Total 850 ml Output Total 900 ml Balance -50 ml INTERDISCIPLINARY TEAM CONFERENCE BOWEL- Cont BLADDER-Cont SKIN- intact OT- DRESSING-sba BATHING-sba TOILETING-sba PT- BED MOBILITY-sba TRANSFERS-sba AMBULATION-sba 150 feet SPEECH- COGNITION-s DYPHAGIA A/P- Interdisciplinary team conference held today. Please see interdisciplinary sheet. Working toward d.c. on 04/25 with post discharge follow up of physical therapy, occupational therapy. Results/Medications Result Diagram: 04/23/17 0534 04/21/17 0642 Results 24 hrs Laboratory Tests Test 04/23/17 17:01 04/23/17 20:18 04/24/17 08:02 04/24/17 11:54 Bedside Glucose 190 148 176 106 Medications Current Medications Acetaminophen (Tylenol Tab) 650 mg Q4H PRN PO PAIN AND OR ELEVATED TEMP; Start 04/12/17 at 22:30 Glucose (Glutose) 31 gm PRN PRN PO DECREASED GLUCOSE; Start 04/12/17 at 22:30 Dextrose (D50w Syringe) 50 ml PRN PRN IV DECREASED GLUCOSE; Start 04/12/17 at 22:30 Nitroglycerin (Nitroglycerin (Sl Tab) 0.4 Mg) 1 tab Q5M PRN SL ANGINA; Start at 22:30 Pantoprazole (Protonix Tab) 40 mg DAILY@06 PO Last administered on 04/24/17 06 :46; Admin Dose 40 MG; Start 04/13/17 at 06:00 Amlodipine Besylate (Norvasc) 10 mg DAILY PO Last administered on 04/24/17 08: 27; Admin Dose 10 MG; Start 04/13/17 at 09:00 Aspirin (Ecotrin) 325 mg DAILY PO Last administered on 04/24/17 08:24; Admin Dose 325 MG; Start 04/13/17 at 09:00 Atorvastatin Calcium (Lipitor) 80 mg HS PO Last administered on 04/23/17 20:19 ; Admin Dose 80 MG; Start 04/13/17 at 21:00 Enoxaparin Sodium (Lovenox) 40 mg DAILY SC Last administered on 04/24/17 08:24 ; Admin Dose 40 MG; Start 04/13/17 at 09:00 Diagnostic Test (Pha) (Accu-Chek) 1 ea 02 XX Last administered on 04/22/17 02: 00; Admin Dose 1 EA; Start 04/13/17 at 02:00 Docusate Sodium (Colace) 100 mg BID PO Last administered on 04/24/17 08:24; Admin Dose 100 MG; Start 04/13/17 at 09:00 Senna (Senokot) 1 tab HS PO Last administered on 04/23/17 20:20; Admin Dose 1 TAB; Start 04/13/17 at 21:00 Bisacodyl (Dulcolax Supp) 10 mg Q24H PRN [place] CONSTIPATION; Start 04/13/17 at 08: 30 Magnesium Hydroxide (Milk Of Mag) 30 ml Q12H PRN PO CONSTIPATION; Start at 08:30 Lactulose (Enulose) 20 gm Q24H PRN PO CONSTIPATION Last administered on 09:08; Admin Dose 20 GM; Start 04/13/17 at 08:30 Miscellaneous Information 1 ea NOTE XX ; Start 04/13/17 at 18:00 Glucose (Glutose) 15 gm Q15M PRN PO DECREASED GLUCOSE; Start 04/13/17 at 18:00 Glucose (Glutose) 22.5 gm Q15M PRN PO DECREASED GLUCOSE; Start 04/13/17 at 18: 00 Dextrose (D50w Syringe) 25 ml Q15M PRN IV DECREASED GLUCOSE; Start 04/13/17 at 18:00 Dextrose (D50w Syringe) 50 ml Q15M PRN IV DECREASED GLUCOSE; Start 04/13/17 at 18:00 Glucagon (Glucagen) 1 mg Q15M PRN IM DECREASED GLUCOSE; Start 04/13/17 at 18:00 Glucose (Glutose) 15 gm Q15M PRN BUCCAL DECREASED GLUCOSE; Start 04/13/17 at 18 :00 Linagliptin (Tradjenta) 5 mg DAILY PO Last administered on 04/24/17 08:24; Admin Dose 5 MG; Start 04/14/17 at 12:00 Losartan Potassium (Cozaar) 50 mg BID PO Last administered on 04/24/17 08:29; Admin Dose 50 MG; Start 04/15/17 at 21:00 Insulin Glargine (Lantus) 35 unit QHS SC Last administered on 04/23/17 20:26; Admin Dose 35 UNIT; Start 04/21/17 at 21:00 EVANGELINA RAMIREZ MD Apr 24, 2017 14:02
[2017-04-24 20:00] VITALS: BP 120/26; RESP 18
[2017-04-24] MEDS: INSULIN GLARGINE [LANtus] 3 ML PEN SC SCH (20:30)
[2017-04-24] MEDS: SENNA TAB PO SCH (20:31)
[2017-04-24] MEDS: ATORVASTATIN 80 MG TAB PO SCH (20:31)
[2017-04-25 02:00] VITALS: BP 152/66; RESP 18
[2017-04-25] MEDS: ACCUCHECK AT 2AM (Patients on SS coverage) XX SCH (02:00)
[2017-04-25] MEDS: PANTOPRAZOLE (EC) 40 MG TAB PO SCH (06:13)
[2017-04-25] MEDS: Insulin NOVOLOG SS MODERATE Algorithm (SS with meals and bedtime) SC SCH ×2 (07:35→12:00)
[2017-04-25 07:40] VITALS: BP 142/74; RESP 18
[2017-04-25] MEDS: ENOXAPARIN 40 MG/0.4 ML SYG SC SCH (08:10)
[2017-04-25] MEDS: INSULIN ASPART [NOVOLOG] 3 ML PEN SC SCH ×2 (08:12→12:27)
[2017-04-25] MEDS: ASPIRIN (EC) 325 MG TAB PO SCH (08:13)
[2017-04-25] MEDS: AL HYDROX/MG HYDROX/SIMETH 30 ML CUP PO SCH ×2 (08:13→12:26)
[2017-04-25] MEDS: LINAGLIPTIN 5 MG TABLET PO SCH (08:13)
[2017-04-25] MEDS: DOCUSATE SODIUM 100 MG CAP PO SCH (08:14)
[2017-04-25] MEDS: AMLODIPINE 10 MG TAB PO SCH (08:14)
[2017-04-25] MEDS: LOSARTAN 50 MG TAB PO SCH (08:14)
--- NOTE | 2017-04-25 11:09 | DS ---
Date/Time of Note Date/Time of Note DATE: 04/25/17 TIME: 11:06 Discharge Summary Admission/Discharge Info Admit Date/Time Apr 12, 2017 at 21:24 Discharge Date/Time Discharge Diagnosis Right basal ganglia infarct CVA with left-sided weakness New onset diabetes mellitus type 2 hypertension hyperlipidemia history of CVA with good functional recovery Improvements in self-care mobility and cognition Patient Condition: Good Hospital Course Patient was admitted for conference of interdisciplinary acute rehab and made excellent functional gains during the course of the stay. Patient progressed from an initial moderate assist for self-care mobility tasks and progress to the point of standby assist for self-care mobility including ambulation with the use of a front wheel walker. Patient's family did receive caregiver training and was able to demonstrate safe carryover of technique. Patient did receive diabetic education with regards to his newly diagnosed diabetes. Patient is being discharged home with recommendation of home health physical therapy and Occupational Therapy follow-up the discharge medications are per the medication reconciliation sheet. Patient will follow up with his safety person Primary Care Provider El Laura Cheung Pending Labs Laboratory Tests Test 04/24/17 11:54 04/24/17 17:23 04/24/17 20:29 04/25/17 07:54 Bedside Glucose 106mg/dL (70-220) 130mg/dL (70-220) 128mg/dL (70-220) 128mg/dL (70-220) EVANGELINA RAMIREZ MD Apr 25, 2017 11:09
--- NOTE | 2017-04-26 13:40 | CONS ---
DATE OF ADMISSION: 04/12/2017 DATE OF CONSULTATION: 04/13/2017 HISTORY OF THE PRESENT ILLNESS: The patient is a 66-year-old male who was initially admitted to [facility] with stroke symptoms and diabetes mellitus, mild diabetic ketoacidosis. The patient's blood pressure was controlled. The patient was seen by Dr. araiza in consultation and the patient required acute rehabilitation and transferred here for further management. The patient's potassium was 3.1, 2137. The patient's BUN 27, creatinine 1.18. The patient also received physical therapy at [facility]. The patient has CT scan of the head without contrast that showed no acute intracranial abnormality. And evolution of the previously visualized right basal ganglia infarction, with subsequent encephalomalacia, stable remote lacunar infarction involving the bilateral subinsular white matter and the paramedian left thalamus, baseline mild to moderate peripheral and central cerebral volume loss, baseline of the moderate patchy periventricular and subcortical white matter hypodensity. MRI of the head shows there has been no marked interval change compared to the patient's prior angiogram from 08/11/2016. Moderate to severe stenosis distal right M1 segment of the middle cerebral artery. Severe stenotic segment within the left P2 segment of the posterior cerebral artery. Mild to moderate stenosis proximal basilar artery. Bilateral origin of the posterior cerebral artery, hyperplastic left temporal artery. MRI of neck showed bifurcation of without evidence of significant stenosis or occlusion. Dominant right vertebral and hypoblastic left vertebral artery. MRA of brain without contrast was also done, it shows acute infarction right cerebral peduncle, mild to moderate diffuse atrophy. Extensive . Old hemorrhage at right basal ganglia infarction with encephalomalacia. Old lacunar infarction within the left thalamus and right mid radha. Chest x-ray showed no evidence of acute active cardiopulmonary disease. Hematocrit 43.7, recorded as, and the patient has dyslipidemia. LDL 165. Urine was positive for mild urinary tract infection. PAST MEDICAL HISTORY: Positive for hypertension, diabetes mellitus. CVA. Electrolyte imbalance. SOCIAL HISTORY: Negative. ALLERGIES: NEGATIVE. MEDICATIONS: Sliding scale. The patient is on amlodipine, aspirin, atorvastatin, Rocephin, Lovenox, insulin, lisinopril, Protonix. Glucagon. REVIEW OF SYSTEMS: HEENT: Unremarkable. RESPIRATORY: Unremarkable. CARDIAC: Unremarkable. GASTROINTESTINAL: No nausea, vomiting, diarrhea. EXTREMITIES: Unremarkable. ASSEMBLER MOLDED FRAMES: Unremarkable. PHYSICAL EXAMINATION: GENERAL: The patient is awake, alert. VITAL SIGNS: Stable. HEENT: Head is atraumatic, normocephalic. Pupils equal and reactive. NECK: Supple. No JVD. HEART: S1, S2 is normal. LUNGS: Clear. ABDOMEN: Soft. Nontender. Bowel sounds positive. No palpable masses or hepatosplenomegaly. No guarding or rebound tenderness. EXTREMITIES: No cyanosis, clubbing or edema. NEUROLOGIC: The patient is awake, weak. Moving both upper and lower extremities. IMPRESSION: 1. Cerebrovascular accident. 2. Hypertension. 3. Dyslipidemia. 4. Chronic kidney disease. 5. Urinary tract infection. 6. Atherosclerotic vascular disease. PLAN: To continue physical therapy, sliding scale. Antibiotics and home medications will be reviewed and continued. Dictated By: Joce Lynch MD /jax/samia /Document#: [id number] FÉLIX
== END 2017-04-25 15:30 | disposition home health service (06) | DRG 57 ==
LOC: VRC 21:24
PROVIDERS: ADMIT Physical Medicine & Rehabilitation; ATTEND Internal Medicine Nephrology
DX: I69.354 Hemiplegia and hemiparesis following cerebral infarction affecting left non-dominant side (principal); E11.22 Type 2 diabetes mellitus with diabetic chronic kidney disease; E11.65 Type 2 diabetes mellitus with hyperglycemia; E78.5 Hyperlipidemia, unspecified; Z74.09 Other reduced mobility; I25.10 Atherosclerotic heart disease of native coronary artery without angina pectoris; I12.9 Hypertensive chronic kidney disease with stage 1 through stage 4 chronic kidney disease, or unspecified chronic kidney disease; N18.9 Chronic kidney disease, unspecified; I69.318 Other symptoms and signs involving cognitive functions following cerebral infarction; I69.311 Memory deficit following cerebral infarction; I69.390 Apraxia following cerebral infarction; E66.9 Obesity, unspecified; Z68.31 Body mass index [BMI] 31.0-31.9, adult; Z91.81 History of falling
CPT/HCPCS: 80048; 80053; 81001; 82962; 83036; 85025; 87081; 87086; 92507; 92523; 92526; 92610; 97110; 97112; 97116; 97150; 97163; 97167; 97530; 97535; 97542; J0696; J1650; J1815; L1932; L2820